=== PATIENT | male | born 1955 | race Caucasian/White ===

== ENCOUNTER 2019-02-10 05:48 | Day surgery (SDC) | payer BC ==
--- NOTE | 2019-02-04 11:05 | RAD REPORT ---
EXAM DESCRIPTION: RAD - Chest Pa And Lat (2 Views) - 02/04/2019 10:57 am CLINICAL HISTORY: preop Chest pain. COMPARISON: No comparisons FINDINGS: The lungs are emphysematous but clear. The heart is normal in size. No displaced fractures . IMPRESSION: Mild COPD.
[2019-02-04 11:39] LABS: Absolute Lymphocytes (CBC) 1.2 K/uL (0.7-4.9); Basophils % 0.8 % (0-1.3); Hematocrit 33.7 % (39.6-49.0); Lymphocytes % 16.8 % (15.3-44.8); MPV 7.7 fL (7.6-11.3); RBC Red Blood Cell Count 3.64 M/uL (4.33-5.43)
[2019-02-04 11:46] LABS: Protime INR 1.06
[2019-02-04 12:09] LABS: Potassium 4.8 mmol/L (3.5-5.1)
--- OUTSIDE RECORDS SUMMARY | 2019-02-10 05:56 | XMS REPORT | Continuity of Care Document ---
:1955 Author Organization [facility] Care Team Providers Name Role Phone [facility] Unavailable Unavailable Problems Problem Status Onset Classification Date Comments Source Date Reported HYPERCHOLESTEROLEMIA Active Condition 09/13/2014 Medical Group HTN Active Condition 09/13/2014 Medical Group Benign hypertension1 Active Problem 09/02/2018 Data migrated Medical from [place] on 10/29/14. Hypercholesterolemia2 Active Problem 09/02/2018 Data migrated Medical from [place] on 10/29/14. Medications Medication Details Route Status Patient Ordering Order Source Instructions Provider Date lisinopril 20 mg See Active oral tablet [facility] 018 [facility] ns, # 30 Group tab, Refill(s) 6, TAKE 1 TABLET BY MOUTH EVERY DAY, Pharmacy: [facility] #[id number] lisinopril 20 mg 1 tablet, No Longer oral tablet PO, Daily, Active 018 Medical 0 Group Refill(s) amLODIPine 10 mg See Active oral tablet [facility] 018 Medical ns, TAKE 1 Group TABLET BY MOUTH EVERY DAY, # 90 tab, 3 Refill(s), Pharmacy: [facility] #[id number] simvastatin 40 See Active mg oral tablet [facility] 018 Medical ns, TAKE 1 Group TABLET BY MOUTH AT BEDTIME, # 90 tab, 3 Refill(s), Pharmacy: [id number] lisinopril 10 mg See No Longer oral tablet [facility] Active 018 Medical ns, TAKE 2 Group TABLET BY MOUTH EVERY DAY, # 180 tab, 3 Refill(s), Pharmacy: [id number] lisinopril 10 mg See Active oral tablet [facility] 018 Medical ns, TAKE 2 Group TABLET BY MOUTH EVERY DAY, # 180 tab, 3 Refill(s), Pharmacy: [facility] #[id number] simvastatin 40 See Active mg oral tablet [facility] 018 Medical ns, # 90 Group tab, Refill(s) 3, TAKE 1 TABLET BY MOUTH AT BEDTIME, Pharmacy: [facility] #[id number] triamcinolone 40 mg, Inactive ACETONIDE 40 Route: IM, 018 Medical mg/mL injectable ONCE, Group suspension Dosing Weight 105.057, kg, (KENALOG), Start date: 08/19/17 14:59:00 CDT, Stop date: 08/19/17 14:59:00 CDT benzonatate 100 100 mg=1 No Longer MH mg oral capsule cap, PO, Active 018 Medical TID, do Group not crush or chew, X 10 day, # 30 cap, 0 Refill(s), Pharmacy: [facility] #[id number] Levofloxacin 500 500 mg=1 No Longer MH MG Oral Tablet tab, PO, Active 018 Medical [Levaquin] Q24H, X 7 Group day, # 7 tab, 0 Refill(s), Pharmacy: [facility] #[id number] sucralfate 1 g 1 gm=1 Active oral tablet tab, PO, 017 Medical Before Group Meals & Bedtime, # 120 tab, 1 Refill(s), Pharmacy: [facility] #[id number] omeprazole 20 mg 20 mg=1 Active MH oral enteric tab, PO, 017 Medical coated tablet QAM, # 30 Group tab, 2 Refill(s), Pharmacy: [facility] #[id number] Ascorbic Acid 1 tab, PO, Active MH 113 MG / Beta Daily, 0 017 Medical Carotene 7160 MG Refill(s) Group / cuprous oxide 0.4 MG / dl-alpha tocopheryl acetate 100 UNT / Zinc Oxide 17.4 MG Oral Tablet [PreserVision] AMLODIPINE 1 po qam Active BESYLATE 5 MG 015 Medical TABS Group LISINOPRIL-HYDRO 1 po qd Active MH CHLOROTHIAZIDE 013 Medical 10-12.5 MG TABS Group LISINOPRIL-HYDRO 1 po qd Active MH CHLOROTHIAZIDE 013 Medical 10-12.5 MG TABS Group SIMVASTATIN 20 1 po qd Active MH MG TABS 012 Medical Group SIMVASTATIN 20 1 po qd Active MG TABS 012 Medical Group Allergies, Adverse Reactions, Alerts Substance Category Reaction Severity Reaction Status Date Comments Source type Reported PCN Drug PCN allergy 3 Medical Group penicillins Assertion Drug Active Data <sup>1</sup allergy 3 migrated Medical > from [facility] on 12/29/14. Originally documented as PCN. Immunizations No Data Provided for This Section Results Order Name Results Value Reference Date Interpretation Comments Source Range Chemistry SODIUM 138 135 - 143 2014 Medical Group Chemistry POTASSIUM 4.4 3.3 - 5.0 2014 Medical Group Chemistry ALBUMIN 4.4 3.5 - 5.0 2014 Medical Group Chemistry CALCIUM 9.4 8.6 - 9.8 2014 Medical Group Chemistry CREATININE 0.82 0.46 - 1.20 2014 Medical Group Chemistry BUN 17 10 - 22 2014 Medical Group Chemistry ALK PHOS 86 32 - 96 2014 Medical Group Chemistry SGOT (AST) 22 10 - 42 2014 [facility] Group Chemistry SGPT (ALT) 17 11 - 43 2014 Medical Group Chemistry CHOLESTEROL 228 120 - 200 2014 Medical Group Chemistry HDL 51 26 - 62 2014 Medical Group Chemistry LDL 132 0 - 130 2014 Medical Group Hematology HGB 14.3 12.3 - 17.3 2014 Medical Group Hematology HCT 42.9 36.7 - 50.5 2014 Medical Group Chemistry SODIUM 140 135 - 143 2013 Medical Group Chemistry POTASSIUM 4.4 3.3 - 5.0 2013 Medical Group Chemistry SODIUM 140 135 - 143 2013 Medical Group Chemistry POTASSIUM 4.4 3.3 - 5.0 2013 Medical Group Chemistry ALBUMIN 4.3 3.5 - 5.0 2013 Medical Group Chemistry CALCIUM 9.4 8.6 - 9.8 2013 Medical Group Chemistry CREATININE 0.73 0.46 - 1.20 2013 Medical Group Chemistry BUN 15 10 - 22 2013 Medical Group Chemistry ALK PHOS 80 32 - 96 2013 Medical Group Chemistry SGOT (AST) 27 10 - 42 2013 Medical Group Chemistry SGPT (ALT) 29 11 - 43 2013 Medical Group Chemistry CHOLESTEROL 259 120 - 200 2013 Medical Group Chemistry HDL 49 26 - 62 2013 Medical Group Chemistry LDL 145 0 - 130 2013 Medical Group Chemistry PSA 1.16 0 - 4.0 2013 Medical Group Chemistry TSH 1.48 0.34 - 5.60 2013 Medical Group Chemistry PSA 1.31 2012 Medical Group Chemistry PSA 1.31 2012 Medical Group Chemistry PSA 3.02 2010 Medical Group Chemistry PSA 3.02 2010 Medical Group Chemistry PSA 1.2 2004 Medical Group Chemistry PSA 1.2 2004 Medical Group Pathology Reports No Data Provided for This Section Diagnostic Reports No Data Provided for This Section Consultation Notes No Data Provided for This Section Discharge Summaries No Data Provided for This Section History and Physicals No Data Provided for This Section Vital Signs Vital Sign Value Date Comments Source Weight 110.966 01/15/2018 Medical Group BMI Calculated 30.58 01/15/2018 Medical Group Height 190.5 cm 01/15/2018 Medical Group Heart Rate 80 01/15/2018 Medical Group Systolic (mm Hg) 151 01/15/2018 Medical Group Diastolic (mm Hg) 96 01/15/2018 Medical Group Weight 106.989 10/09/2017 Medical Group BMI Calculated 29.48 10/09/2017 Medical Group Heart Rate 68 10/09/2017 Medical Group Height 190.5 cm 10/09/2017 Medical Group Systolic (mm Hg) 153 10/09/2017 Medical Group Diastolic (mm Hg) 91 10/09/2017 Medical Group Weight 105.057 08/19/2017 Medical Group Heart Rate 67 08/19/2017 Medical Group Respitory Rate 16 08/19/2017 Medical Group Systolic (mm Hg) 140 08/19/2017 Medical Group Diastolic (mm Hg) 90 08/19/2017 Medical Group Weight 103.636 05/21/2017 Medical Group Heart Rate 64 05/21/2017 [facility] Respitory Rate 16 05/21/2017 [facility] Systolic (mm Hg) 134 05/21/2017 [facility] Diastolic (mm Hg) 74 05/21/2017 Medical Group BMI Calculated 29.07 05/07/2017 [facility] Weight 105.511 05/07/2017 [facility] Systolic (mm Hg) 112 05/07/2017 [facility] Diastolic (mm Hg) 74 05/07/2017 [facility] Height 190.5 cm 05/07/2017 [facility] Respitory Rate 14 05/07/2017 Medical Group Heart Rate 76 05/07/2017 Medical Group Weight 106.818 04/16/2017 Medical Group BMI Calculated 29.43 04/16/2017 Medical Group Height 190.5 cm 04/16/2017 [facility] Systolic (mm Hg) 138 04/16/2017 [facility] Diastolic (mm Hg) 86 04/16/2017 Medical Group Heart Rate 59 04/16/2017 Medical Group Weight 216 09/13/2014 [facility] Temperature Oral (F) 97 F 09/13/2014 Medical Group Heart Rate 64 09/13/2014 [facility] Systolic (mm Hg) 160 09/13/2014 [facility] Diastolic (mm Hg) 94 09/13/2014 Medical Group Weight 228 03/15/2014 Medical Group Temperature Oral (F) 97 F 03/15/2014 Medical Group Heart Rate 57 03/15/2014 [facility] Systolic (mm Hg) 166 03/15/2014 Medical Group Diastolic (mm Hg) 89 03/15/2014 Medical Group Weight 231 07/23/2013 Medical Group Temperature Oral (F) 98 F 07/23/2013 Medical Group Heart Rate 72 07/23/2013 Medical Group Systolic (mm Hg) 143 07/23/2013 Medical Group Diastolic (mm Hg) 87 07/23/2013 Medical Group Weight 233 01/21/2013 Medical Group Heart Rate 88 01/21/2013 [facility] Systolic (mm Hg) 130 01/21/2013 Medical Group Diastolic (mm Hg) 84 01/21/2013 Medical Group Weight 220 07/23/2012 Medical Group Heart Rate 88 07/23/2012 Medical Group Systolic (mm Hg) 120 07/23/2012 Medical Group Diastolic (mm Hg) 80 07/23/2012 Medical Group Height 74 01/09/2012 Medical Group Weight 230 01/09/2012 Medical Group Heart Rate 80 01/09/2012 Medical Group Systolic (mm Hg) 150 01/09/2012 Medical Group Diastolic (mm Hg) 78 01/09/2012 Medical Group Encounters Location Location Encounter Encounter Reason Attending ADM DC Status Source Details Type Number For Provider Date Date Visit [facility] Lab Report [id number] Sharif 03/14 03/14 [facility] [place] [address], /2013 [facility] [place] [facility] Office [id number] 03/15 [facility] Visit [address], /2013 Medical [facility] [place] [facility] Lab Report [id number] Sharif 09/06 09/06 [facility] [place] [address], /2014 Medical [facility] [place] [facility] Office [id number] Sharif 09/13 09/13 [facility] Visit [address], /2014 Medical [facility] [place] [facility] Outpatient [id number] 02/21 [facility] [place] [facility] Outpatient [id number] 08/17 [facility] [place] [facility]2015 [facility] [id number] 02/22 [facility] [place] [facility] [id number] 08/26 [facility] [place] [facility]patient [id number] 09/05 [facility] [place] [facility]patient [id number] 04/16 [id number] Sharif 04/16 04/17 Internal [place] /2016 [facility] [place] Outpatient [id number] 05/07 [facility] [id number] 05/07 05/08 [facility] [place] Outpatient [id number] 05/21 [facility] [id number] 05/21 05/22 [facility] [place] Outpatient [id number] 08/19 [facility] [id number] 08/19 08/20 [facility] [place] [facility] Phone [id number] 08/21 08/23 Family Message /2017 [facility] [place] [facility] Phone [id number] 09/15 09/17 Internal Message /2017 [facility] [place] Outpatient [id number] 10/09 Active [facility] [place] [facility] Outpatient [id number] 10/09 Internal [place] /2017 [facility] [place] Outpatient [id number] 01/15 Active [facility] [place] [facility] Outpatient [id number] Sharif 01/15 01/16 Internal [place] /2017 [facility] [place] [facility] Phone [id number] 02/12 02/14 Internal Message /2017 [facility] Procedures Procedure Code Date Perfomer Comments Source Operation [id number] Medical Group Assessment and Plan No Data Provided for This Section Plan of Care No Data Provided for This Section Social History Social History Date Source Social History TypeResponse 01/15/2018 Medical Group Substance Abuse Use: None. Smoking Status Never smoker; Type: Cigars; Exposure to Tobacco Smoke None; Cigarette Smoking Last 365 Days No; Reg Smoking Cessation Counseling No1 entered on: 01/15/18 1pt is a non-smoker Family History No Data Provided for This Section Advance Directives No Data Provided for This Section Functional Status No Data Provided for This Section
--- OUTSIDE RECORDS SUMMARY | 2019-02-10 05:57 | XMS REPORT | Continuity of Care Document ---
:[address] [facility] [place] [place] Care Team Providers Name Role Phone MD Gregoria, Sharif Unavailable Unavailable Insurance Providers Payer name Policy type / Coverage Policy ID Covered green party ID Policy [place] type AETNA PPO PRIMARY [id number] AETNA PPO PRIMARY [id number] AETNA (PPO) AETNA (PPO) AETNA (PPO) Encounters Encounter Performer Location Date Office Visit Sharif iKnney MD [facility] Internal Mar 15, 2014 Med Allergies, Adverse Reactions, Alerts Type Substance Reaction Status Drug allergy PCN Active Problems Problem Effective Dates Problem Status HYPERCHOLESTEROLEMIA Active HTN Active Procedures Date Description Comments Jan 09, 2012 smoking status never smoker Mar 15, 2014 smoking status Never smoker Medications Medication Instructions Start Date Status SIMVASTATIN 20 MG TABS 1 po qd Jan 09, 2012 Active LISINOPRIL-HYDROCHLOROTHIAZIDE 10-12.5 MG TABS 1 po qd Jul 23, 2012 Active Vital Signs Date Description Test Result Jan 09, 2012 height E&M - 8302-2 HEIGHT 74 in Jan 09, 2012 weight E&M - 3141-9 WEIGHT 230 lb Jan 09, 2012 pulse rate E&M - 8867-4 PULSE RATE 80 /min Jan 09, 2012 blood pressure, systolic - 8480-6 BP SYSTOLIC 150 mm Hg Jan 09, 2012 blood pressure, diastolic - 8462-4 BP DIASTOLIC 78 mm Hg Jul 23, 2012 weight E&M - 3141-9 WEIGHT 220 lb Jul 23, 2012 pulse rate E&M - 8867-4 PULSE RATE 88 /min Jul 23, 2012 blood pressure, systolic - 8480-6 BP SYSTOLIC 120 mm Hg Jul 23, 2012 blood pressure, diastolic - 8462-4 BP DIASTOLIC 80 mm Hg Jan 21, 2013 weight E&M - 3141-9 WEIGHT 233 lb Jan 21, 2013 pulse rate E&M - 8867-4 PULSE RATE 88 /min Jan 21, 2013 blood pressure, systolic - 8480-6 BP SYSTOLIC 130 mm Hg Jan 21, 2013 blood pressure, diastolic - 8462-4 BP DIASTOLIC 84 mm Hg Jul 23, 2013 weight E&M - 3141-9 WEIGHT 231 lb Jul 23, 2013 temperature E&M TEMPERATURE 98 deg f Jul 23, 2013 pulse rate E&M - 8867-4 PULSE RATE 72 /min Jul 23, 2013 blood pressure, systolic - 8480-6 BP SYSTOLIC 143 mm Hg Jul 23, 2013 blood pressure, diastolic - 8462-4 BP DIASTOLIC 87 mm Hg Mar 15, 2014 weight E&M - 3141-9 WEIGHT 228 lb Mar 15, 2014 temperature E&M TEMPERATURE 97 deg f Mar 15, 2014 pulse rate E&M - 8867-4 PULSE RATE 57 /min Mar 15, 2014 blood pressure, systolic - 8480-6 BP SYSTOLIC 166 mm Hg Mar 15, 2014 blood pressure, diastolic - 8462-4 BP DIASTOLIC 89 mm Hg Results Date Description Test Name Value Reference Interpretation Status October 11, prostate specific PSA 3.02 ng/mL 2010 antigen Jan 14, prostate specific PSA 1.31 ng/mL 2012 antigen October 02, prostate specific PSA 1.2 ng/mL 2004 antigen Mar 14, sodium, serum SODIUM 140 mmol/L [phone] Mar 14, potassium, serum POTASSIUM 4.4 mmol/L 3.3-5.0 2013Mar 14, albumin, serum ALBUMIN 4.3 g/dL 3.5-5.0 2013Mar 14, calcium, serum CALCIUM 9.4 mg/dL 8.6-9.8 2013Mar 14, creatinine, serum CREATININE 0.73 mg/dL 0.46-1.20 2013Mar 14, urea nitrogen, blood BUN 15 mg/dL -22 2013Mar 14, alkaline phosphatase, ALK PHOS 80 U/L 32-96 2013 serum Mar 14, aspartate SGOT (AST) 27 U/L 10-42 2013 aminotransferase (SGOT), serum Mar 14, alanine SGPT (ALT) 29 U/L -43 2013 aminotransferase (SGPT), serum Mar 14, cholesterol, serum CHOLESTEROL 259 mg/dl 120-200 High 2013Mar 14, HDL cholesterol, HDL 49 mg/dl -62 2013 serum Mar 14, LDL cholesterol, LDL 145 mg/dl 0-130 High 2013 serum Mar 14, prostate specific PSA 1.16 ng/mL 0-4.0 2013 antigen Mar 14, thyroid stimulating TSH 1.48 0.34-5.60 2013 hormone, serum uIU/mL Jul 23, international INR null null Normal 2012 normalized ratio (INR)
--- OUTSIDE RECORDS SUMMARY | 2019-02-10 05:57 | XMS REPORT ---
:1955 Author [facility] Address [address] [place] [address] Dr. Richardson [address] [place] [id number] Care Team Providers Name Role Phone Unavailable Unavailable Unavailable Problems This patient has no known problems. Allergies, Adverse Reactions, Alerts This patient has no known allergies or adverse reactions. Medications This patient has no known medications.
--- OUTSIDE RECORDS SUMMARY | 2019-02-10 05:57 | XMS REPORT | Continuity of Care Document ---
:1955 Author Organization [facility] Care Team Providers Name Role Phone MD Gregoria, Sharif Unavailable Unavailable Insurance Providers Payer name Policy type / Coverage Policy ID Covered libertarian ID Policy [place] type AETNA PPO PRIMARY [id number] AETNA PPO PRIMARY [id number] AETNA (PPO) AETNA (PPO) AETNA (PPO) Encounters Encounter Performer Location Date Lab Report Sharif Kinney MD [facility] Internal Aug Med Allergies, Adverse Reactions, Alerts Type Substance [...] Description Test Name Value Reference Interpretation Status Sep 06, hemoglobin, blood HGB 14.3 g/dL 12.3-17.3 2014Sep 06, hematocrit, blood HCT 42.9 % 36.7-50.5 2014October 11, prostate specific PSA 3.02 ng/mL 2010 antigen Jan 14, prostate specific PSA 1.31 ng/mL 2012 antigen October 02, prostate specific PSA 1.2 ng/mL 2004 antigen Mar 14, sodium, serum SODIUM 140 mmol/L [phone] Mar 14, potassium, serum POTASSIUM 4.4 mmol/L 3.3-5.0 2013Mar 14, albumin, serum ALBUMIN 4.3 g/dL 3.5-5.0 2013Mar 14, calcium, serum CALCIUM 9.4 mg/dL 8.6-9.8 2013Mar 14, creatinine, serum CREATININE 0.73 mg/dL 0.46-1.20 2013Mar 14, urea nitrogen, blood BUN 15 mg/dL -2013Mar 14, alkaline phosphatase, ALK PHOS 80 U/L 32-96 2013 serum Mar 14, aspartate SGOT (AST) 27 U/L -42 2013 aminotransferase (SGOT), serum Mar 14, alanine SGPT (ALT) 29 U/L -43 2013 aminotransferase (SGPT), serum Mar 14, cholesterol, serum CHOLESTEROL 259 mg/dl 120-200 High 2013Mar 14, HDL cholesterol, HDL 49 mg/dl 26-62 2013Mar 14, LDL cholesterol, LDL 145 mg/dl 0-130 High 2013 serum Mar 14, prostate specific PSA 1.16 ng/mL 0-4.0 2013 antigen Mar 14, thyroid stimulating TSH 1.48 0.34-5.60 2013 hormone, serum uIU/mL Sep 06, sodium, serum SODIUM 138 mmol/L [phone] Sep 06, potassium, serum POTASSIUM 4.4 mmol/L 3.3-5.0 2014Sep 06, albumin, serum ALBUMIN 4.4 g/dL 3.5-5.0 2014Sep 06, calcium, serum CALCIUM 9.4 mg/dL 8.6-9.8 2014Sep 06, creatinine, serum CREATININE 0.82 mg/dL 0.46-1.20 2014Sep 06, urea nitrogen, blood BUN 17 mg/dL 10-22 2014Sep 06, alkaline phosphatase, ALK PHOS 86 U/L 32-96 2014 serum Sep 06, aspartate SGOT (AST) 22 U/L 10-42 2014 aminotransferase (SGOT), serum Sep 06, alanine SGPT (ALT) 17 U/L 11-43 2014 aminotransferase (SGPT), serum Sep 06, cholesterol, serum CHOLESTEROL 228 mg/dl 120-200 High 2014Sep 06, HDL cholesterol, HDL 51 mg/dl 26-62 2014 serum Sep 06, LDL cholesterol, LDL 132 mg/dl 0-130 High 2015 serum Jul 23, international INR null null Normal 2013 normalized ratio (INR)
--- OUTSIDE RECORDS SUMMARY | 2019-02-10 05:57 | XMS REPORT | Summary of Care ---
:1955 Author Organization [facility] [employer] Address [address] [place] [address] Care Team Providers Name Role Phone [address] Primary Care Provider Unavailable Reason for Visit Reason Comments Assessment Encounter Details Date Type Department Care Team Description 01/01/2019 Telephone [facility] Cardiology- Clint Soto MD Assessment [place] [address] [facility] [address] [facility], [address] [place] [address] [place] [address] Allergies No Known Allergiesdocumented as of this encounter (statuses as of 01/01/2019) Medications Medication Sig Dispensed Refills Start Date End Date Status folic Take by mouth 0 Active acid/multivit-min/lutein daily. (CENTRUM SILVER ORAL) acetaminophen/diphenhydr Take by mouth 0 Active amine (TYLENOL PM ORAL) as needed. Bifidobacterium infantis Take by mouth 0 Active (ALIGN ORAL) daily. vit A/vit C/vit Take by mouth 0 Active E/zinc/copper daily. (PRESERVISION AREDS ORAL) simvastatin 40 mg tablet Take 40 mg by 0 Active mouth at bedtime. sucralfate 1 gram tablet Take 3 g by 0 Active mouth before meals and at bedtime. BENZONATATE ORAL Take by mouth 0 Active 3 (three) times daily. triamterene-hydrochlorot Take 1 capsule 30 capsule 2 11/02/2018 Active hiazide (DYAZIDE) by mouth every 37.5-25 mg per capsule morning. amLODIPine 10 mg tablet Take 1 tablet 0 11/03/2018 Active by mouth every morning. lisinopril 40 mg Take 1 tablet 30 tablet 2 12/31/2018 Active tabletIndications: by mouth every Essential hypertension morning. documented as of this encounter (statuses as of 01/01/2019) Active Problems Not on filedocumented as of this encounter (statuses as of 01/01/2019) Social History Tobacco Use Types Packs/Day Years Used Date Former Smoker Smokeless Tobacco: Former User Alcohol Use Drinks/Week oz/Week Comments Yes social Sex Assigned at Date Recorded Not on file Job Start Date Occupation Industry Not on file Not on file Not on file Travel History Travel Start Travel End No recent travel history available. documented as of this encounter Last Filed Vital Signs Not on filedocumented in this encounter Plan of Treatment Date Type Specialty Care Team Description 01/13/2019 Office Visit Pulmonary Disease Sebastian Ferrera [address] [place] [address] [phone] 01/15/2019 Office Visit Cardiology Clint Soto MD [address] [place] [address] [address] [place] [address] [phone] Health Maintenance Due Date Last Done Comments HEPATITIS C (HCV) SCREEN 1955 DTaP,Tdap,and Td Vaccines (1 - 01/17/1975 Tdap) COLONOSCOPY 01/17/2006 Zoster Recombinant Vaccine 01/17/2006 (SHINGRIX) (1 of 2) LUNG CANCER SCREEN: Recommended 01/17/2011 for age 55-80 with 30 + pack year history INFLUENZA VACCINE 01/31/2019 PNEUMOCOCCAL 0-64 YEARS COMBINED Aged Out No longer eligible based on SERIES patient's age to complete this topic documented as of this encounter Results Not on filedocumented in this encounter Insurance Payer Benefit Plan Subscriber ID Effective Dates Phone Address Type / Group [facility] [id number] 2018-Bianca [phone] [address]PO/POS [place] [id number] [place] [address] documented as of this encounter
--- OUTSIDE RECORDS SUMMARY | 2019-02-10 05:57 | XMS REPORT | Continuity of Care Document ---
:1955 Author Organization [facility] Care Team Providers Name Role Phone MD Gregoria, Sharif Unavailable Unavailable Insurance Providers Payer name Policy type / Coverage Policy ID Covered green party ID Policy [place]es type AETNA PPO PRIMARY [id number] AETNA PPO PRIMARY [id number] AETNA (PPO) AETNA (PPO) AETNA (PPO) Encounters Encounter Performer Location Date Lab Report Sharif Kinney MD [facility] Internal Mar Med Allergies, Adverse Reactions, Alerts Type Substance Reaction Status Drug allergy PCN Active Problems Problem Effective Dates Problem Status HYPERCHOLESTEROLEMIA Active HTN Active Procedures Date Description Comments Jan 09, 2012 smoking status never smoker Medications Medication Instructions Start Date Status [...] - 8462-4 BP DIASTOLIC 87 mm Hg Results Date Description Test Name Value Reference Interpretation Status October 11, prostate specific PSA 3.02 ng/mL 2010 antigen Jan 14, prostate specific PSA 1.31 ng/mL 2012 antigen October 02, prostate specific PSA 1.2 ng/mL 2004 antigen Mar 14, sodium, serum SODIUM 140 mmol/L [phone] Mar 14, potassium, serum POTASSIUM 4.4 mmol/L [...]
--- OUTSIDE RECORDS SUMMARY | 2019-02-10 05:57 | XMS REPORT | Continuity of Care Document ---
:1955 Author Organization [facility] Care Team Providers Name Role Phone MD Gregoria, Sharif Unavailable Unavailable Insurance Providers Payer name Policy type / Coverage Policy ID Covered democrat ID Policy [place] type AETNA PPO PRIMARY [id number] AETNA PPO PRIMARY [id number] AETNA (PPO) AETNA (PPO) AETNA (PPO) Encounters Encounter Performer Location Date Office Visit Sharif Kinney MD [facility] Internal Sep 13, 2014 Med Allergies, Adverse Reactions, Alerts Type Substance Reaction Status Drug allergy PCN Active Problems Problem Effective Dates Problem Status HYPERCHOLESTEROLEMIA Active HTN Active Procedures Date Description Comments Jan 09, 2012 smoking status never smoker Mar 15, 2014 smoking status Never smoker Sep 13, 2014 smoking status Never smoker Medications Medication Instructions Start Date Status SIMVASTATIN 20 MG TABS 1 po qd Jan 09, 2012 Active LISINOPRIL-HYDROCHLOROTHIAZIDE 10-12.5 MG TABS 1 po qd Jul 23, 2012 Active AMLODIPINE BESYLATE 5 MG TABS 1 po qam Sep 13, 2014 Active Vital Signs Date Description Test Result [...] - 8462-4 BP DIASTOLIC 89 mm Hg Sep 13, 2014 weight E&M - 3141-9 WEIGHT 216 lb Sep 13, 2014 temperature E&M TEMPERATURE 97 deg f Sep 13, 2014 pulse rate E&M - 8867-4 PULSE RATE 64 /min Sep 13, 2014 blood pressure, systolic - 8480-6 BP SYSTOLIC 160 mm Hg Sep 13, 2014 blood pressure, diastolic - 8462-4 BP DIASTOLIC 94 mm Hg Results Date Description Test Name Value Reference Interpretation Status Sep 06, hemoglobin, blood HGB 14.3 g/dL 12.3-17.3 2014Sep 06, hematocrit, blood HCT 42.9 % 36.7-50.5 2014October 11, prostate specific PSA 3.02 ng/mL 2010 antigen Jan 14, prostate specific PSA 1.31 ng/mL 2012 antigen October 02, prostate specific PSA 1.2 ng/mL 2004 antigen Mar 14, sodium, serum SODIUM 140 mmol/L [phone] Mar 14, potassium, serum POTASSIUM 4.4 mmol/L 3.3-5.0 2013Mar 14, albumin, serum ALBUMIN 4.3 g/dL 3.5-5.0 2013Mar 14, calcium, serum CALCIUM 9.4 mg/dL 8.6-9.8 2013Mar 14, creatinine, serum CREATININE 0.73 mg/dL 0.46-1.20 2013Mar 14, urea nitrogen, blood BUN 15 mg/dL -2013Mar 14, alkaline phosphatase, ALK PHOS 80 U/L 2013 serum Mar 14, aspartate SGOT (AST) 27 U/L 2013 aminotransferase (SGOT), serum Mar 14, alanine SGPT (ALT) 29 U/L 2013 aminotransferase (SGPT), serum Mar 14, cholesterol, serum CHOLESTEROL 259 mg/dl 120-200 High 2013Mar 14, HDL cholesterol, HDL 49 mg/dl -2013 serum Mar 14, LDL cholesterol, LDL 145 mg/dl 0-130 High 2013 serum Mar 14, prostate specific PSA 1.16 ng/mL 0-4.0 2013 antigen Mar 14, thyroid stimulating TSH 1.48 0.34-5.60 2013 hormone, serum uIU/mL Sep 06, sodium, serum SODIUM 138 mmol/L [phone] Sep 06, potassium, serum POTASSIUM 4.4 mmol/L 3.3-5.0 2014Sep 06, albumin, serum ALBUMIN 4.4 g/dL 3.5-5.0 2014Sep 06, calcium, serum CALCIUM 9.4 mg/dL 8.6-9.8 2014Sep 06, creatinine, serum CREATININE 0.82 mg/dL 0.46-1.20 2014Sep 06, urea nitrogen, blood BUN 17 mg/dL 03-23Sep 06, alkaline phosphatase, ALK PHOS 86 U/L 2014 serum Sep 06, aspartate SGOT (AST) 22 U/L 2014 aminotransferase (SGOT), serum Sep 06, alanine SGPT (ALT) 17 U/L 2014 aminotransferase (SGPT), serum Sep 06, cholesterol, serum CHOLESTEROL 228 mg/dl 120-200 High 2014Sep 06, HDL cholesterol, HDL 51 mg/dl 2014 serum Sep 06, LDL cholesterol, LDL 132 mg/dl 0-130 High 2015 serum Jul 23, international INR null null Normal 2012 normalized ratio (INR)
--- OUTSIDE RECORDS SUMMARY | 2019-02-10 05:58 | XMS REPORT | Summary of Care ---
:1955 Author Organization [facility] Address [address] [place] [id number] Care Team Providers Name Role Phone Robert St Primary Care Provider Unavailable Reason for Referral (Routine) Status Reason Specialty Diagnoses / Referred By Referred To Procedures Contact Contact New Request Sleep Disorder Diagnoses Obstructive sleep apnea of adult [facility], Diagnostic Procedures SLEEP STUDY, ATTENDED [address] [place] [address] Reason for Visit Reason Comments New Patient Results HST (Routine) Status Reason Specialty Diagnoses / Referred By Referred To Procedures Contact Contact Closed Sleep Disorder Diagnoses FEI (obstructive sleep apnea) Clint Soto MD Diagnostic Procedures CONSULT/REFERRAL SLEEP CLINIC ADULT PULM Preferred Location: [address] [place] [address] Encounter Details Date Type Department Care Team Description 01/13/2019 Office Visit [facility] Sebastian Ferrera Obstructive sleep Pulmonary Clinic [address] [place] [address] ap[address] Alvar[address] Lala [address] (Primary Dx) [address] [place] [address] [place], [place] [phone] Allergies No Known Allergiesdocumented as of this encounter (statuses as of 01/13/2019) Medications Medication Sig Dispensed Refills Start Date [...] as of this encounter (statuses as of 01/13/2019) Active Problems Not on filedocumented as of this encounter (statuses as of 01/13/2019) Social History Tobacco Use Types Packs/Day Years [...] of this encounter Last Filed Vital Signs Vital Sign Reading Time Taken Comments Blood Pressure 117/76 01/13/2019 11:26 AM CDT Pulse 90 01/13/2019 11:26 AM CDT Temperature - - Respiratory Rate 19 01/13/2019 11:26 AM CDT Oxygen Saturation 97% 01/13/2019 11:26 AM CDT Inhaled Oxygen Concentration - - Weight 107 kg (235 lb 12.8 oz) 01/13/2019 11:26 AM CDT Height 193 cm (6' 4") 01/13/2019 11:26 AM CDT Body Mass Index 28.7 01/13/2019 11:26 AM CDT documented in this encounter Progress Notes Sebastian Ferrera - 01/13/2019 11:30 AM CDTReason for Clinic Visit: The patient comes to clinic today for a review of sleep study results. Chief Complaints: The patient reports: excessive daytime sleepiness, fatigue, snoring, witnessed apneas. History of Present Illness: The usual bed time is 9 p.m. and wake up time is 5: 30-6 a.m. The patientdoes take intentional naps during the day. The patient does not suffer from irresistible sleep attacks during the day. The patient does not experience sudden loss of muscle tone when emotional or excited. The patient does not report vivid dream-like images and loss of muscle tone when falling asleep and upon awakening. Witherbee Sleepiness Scale score: 10 (0-24). Social History: The patient does not smoke cigarettes. The patient occasionally drinks alcoholic beverages. Caffeinated beverages consumption: 1-2 per day. Family History: The family history is positive for snoring in blood relatives. Physical Examination: 1) Vital signs: as noted above. 2) General: the patient is pleasant, well developed, and in NAD. 3) Skin: there are no rashes, edema, or abnormal pigmentation. 4) Head: there areno skull deformities or pathological facial asymmetry. 5) Eyes: pupils are equal, round, and reactive to light; extraocular movements are conjugate and unrestricted, without strabismus or nystagmus. 6)ENT: oropharynx reveals low set soft palate and elongated uvula; the patient displays a good sniff through both the right and left nostril. 7) Neck: there are no distended veins or enlarged lymph nodes. 8) Back: straight, spine - without pathological curvatures. 9) Bilateral lower extremities are without edema. 10) Neurological - patient is alert, oriented and answers questions appropriately. Review of Systems: 1)Respiratory: positive for snoring and witnessed apneas; 2)Cardiovascular: positive for hypertension; 3)Endocrine/Metabolic: positive for dyslipidemia; 4) Digestive: negative for abnormalities; 5)Urinary: positive for nocturia; 6) Skeletal: no skeletal abnormalities detected; 7)Muscular: negative for muscular abnormalities; 8)Nervous: positive for hypersomnia; 9)Integumentary: no visible or reported skin or hair abnormalities; 10)Reproductive: no reproductive abnormalities noted; 11)Immune/Lymphatic/Allergy: positive for respiratory allergies. Sleep Study Results: The HST on 11/25/18 revealed respiratory disturbance index of 37.8 events per hour of total sleep (normal <5/hr) with a minimum oxygen saturation by pulse oximetry of 84%. Diagnosis: Obstructive Sleep Apnea-G47.33 Recommendations and Patient Education: The medical condition (Obstructive Sleep Apnea Syndrome) was discussed with the patient and the possible consequences of untreated sleep apnea regarding quality of sleep, daytime alertness, and cardiovascular complications were underlined. The patient was prompted to ask questions clarifying the subject of sleep apnea and related issues and all questions were answered in detail. Different treatment options were discussed with the patient including Positive Airway Pressure (PAP), ENT surgery, Mandibular Advancement Device, and weight reduction. The effectiveness, success rates, and side effects of these different treatment options were compared and analyzed. The patient prefers PAP treatment trial at this time and I have therefore scheduled for a PAP titration study. Additional time was spent discussing sleep hygiene including: regular bedtime and wake-up times; enough sleep hours; going to bed only when sleepy; using bed for the sole purpose of sleeping; avoidanceof: 1) caffeinated and alcoholic beverages, 2) strenuous cognitive activity, or 3) heavy meals in the evening. The patient was instructed to contact us in case of any further questions or concerns. I will follow up with the patient to review the results of the sleep study. documented in this encounter Plan of Treatment Date Type Specialty Care Team Description 01/15/2019 Office Visit Cardiology Clint Soto MD [address] [place] [address] [phone] Name Type Priority Associated Diagnoses Order Schedule SLEEP STUDY, ATTENDED PROCEDURES Routine Obstructive sleep apnea Ordered: 01/13/2019 of adult Health Maintenance Due Date Last Done Comments [...] Results Not on filedocumented in this encounter Visit Diagnoses Diagnosis Obstructive sleep apnea of adult - Primary Obstructive sleep apnea (adult) (pediatric) documented in this encounter Insurance Payer Benefit Plan Subscriber ID Effective Dates Phone Address Type / Group [facility] [id number] 2018-Bianca [phone] [address] PPO/POS [facility] [id number] [place] [address] documented as of this encounter
--- OUTSIDE RECORDS SUMMARY | 2019-02-10 05:58 | XMS REPORT | Summary of Care ---
:1955 Author Organization [facility] [place] Address [address] [place] [address] Care Team Providers Name Role Phone Robert St Primary Care Provider Unavailable Reason for Visit Reason Comments Pre-op Clearance Encounter Details Date Type Department Care Team Description 01/13/2019 Telephone [facility] Cardiology- Clint Soto MD Pre-op Clearance [address] [place] [address] [place], [place] [phone] Allergies No Known Allergiesdocumented as of this [...] 01/15/2019 Office Visit Cardiology Clint Soto MD [address] [place] [address] [place] [address] [id number] 01/15/2019 Scanning Manager Visit Sleep Disorder [address] [place] [phone] Diagnostic 1, [facility] Sleep Lab Bed 01/20/2019 Office Visit Pulmonary Disease [address] John [address] [place] [address] [phone] Health Maintenance Due Date Last Done Comments [...] Effective Dates Phone Address Type / Group [facility] [id number] 2018-Bianca [phone] [address] PPO/POS [facility] [address] [id number] [place] [address] documented as of this encounter
--- OUTSIDE RECORDS SUMMARY | 2019-02-10 05:58 | XMS REPORT | Summary of Care ---
:1955 Author Organization [facility] [employer] Address [address] [place] [address] Care Team Providers Name Role Phone MacielBertinju Primary Care Provider Unavailable Reason for Referral Radiology Services (Routine) Status Reason Specialty Diagnoses / Referred By Referred To Procedures Contact Contact Closed Diagnostic Diagnoses Chest pain, unspecified type R07.9 (ICD-10-CM) - Chest pain, unspecified type Clint Soto, Radiology Procedures NM MYOCARDIUM PERFUSION STRESS AND REST CHG MYOCARDIAL SPECT MULTIPLE STUDIES [id number] - NM MYOCARDIUM PERFUSION STRESS AND REST [id number] - CHG MYOCARDIAL SPECT MULTIPLE STUDIES [address] [place] [address] [address] [place] [address] (Routine) Status Reason Specialty Diagnoses / Procedures Referred By Contact Referred To Contact Closed Cardiology Diagnoses Chest pain, unspecified type Clint Soto MD Procedures ECHO ROUTINE W/DOPPLER COLOR Preferred Location: [facility] [address] [place] [address] [address] [place] [address] Reason for Visit Reason Comments New Patient Establish Care/Needing GI work up Cardiac Clearance Encounter Details Date Type Department Care Team Description 10/02/2018 Office Visit [facility] Clint Soto MD Chest pain, unspecified type (Primary Dx); Cardiology- [address] Essential hypertension; [address] [place] [address], [address] [place] [id number] [phone] Allergies No Known Allergiesdocumented as of this encounter (statuses as of 01/13/2019) Medications Medication Sig Dispensed Refills Start Date End Date Status folic Take by 0 Active acid/multivit-min/lut mouth daily. ein (CENTRUM SILVER ORAL) acetaminophen/diphenh Take by 0 Active ydramine (TYLENOL PM mouth as ORAL) needed. Bifidobacterium Take by 0 Active infantis (ALIGN ORAL) mouth daily. vit A/vit C/vit Take by 0 Active E/zinc/copper mouth daily. (PRESERVISION AREDS ORAL) simvastatin 40 mg Take 40 mg 0 Active tablet by mouth at bedtime. sucralfate 1 gram Take 3 g by 0 Active tablet mouth before meals and at bedtime. BENZONATATE ORAL Take by 0 Active mouth 3 (three) times daily. lisinopril 20 mg Take 20 mg 0 10/02/2018 Discontinued tablet by mouth daily. amLODIPine 10 mg Take 10 mg 0 11/03/2018 Discontinued tablet by mouth daily. omeprazole 20 mg Take 20 mg 0 10/30/2018 Discontinued capsule by mouth daily. lisinopril 20 mg Take 1 60 tablet 1 10/02/2018 10/02/2018 Discontinued tabletIndications: tablet by Essential mouth 2 hypertension (two) times daily. documented as of this encounter (statuses as [...] Sign Reading Time Taken Comments Blood Pressure 158/91 10/02/2018 9:45 AM CDT Pulse 60 10/02/2018 9:45 AM CDT Temperature - - Respiratory Rate 20 10/02/2018 9:45 AM CDT Oxygen Saturation 99% 10/02/2018 9:45 AM CDT Inhaled Oxygen Concentration - - Weight 105.7 kg (233 lb 1.6 oz) 10/02/2018 9:45 AM CDT Height 193 cm (6' 4") 10/02/2018 9:45 AM CDT Body Mass Index 28.37 10/02/2018 9:45 AM CDT documented in this encounter Progress Notes Clint Soto MD - 10/02/2018 9:40 AM CDT CARDIOLOGY CLINIC NOTE 10/02/2018 Reason for Referral/Presenting Complaint: chest pain PCP: Robert St History of Present Illness: Martín Bermudez is a 63 years old male with history of HTN, HLD. He is here for chest pain. It is precordial exploding sensation, associated with SOB. It only occurs when he is exerting and burps at the same time. Feels that he cannot get the gas out. Sometimes he wakes up burping. Occasionalleft sided arm pain. Has a slimy taste with nausea. Barium test normal. Plan on GI endoscopy. BP hasbeen high. He snores. Review of Systems: General: (-) fever, (-) chills, (-) weight change, (-) dizziness, (-) fatigue Skin: (-) rash HEENT: (-) headache, (-) change in vision Neck: (-) difficulty swallowing Heme: negative Resp: (-) cough, (-) dyspnea on exertion Cardio: (+) chest pain, (-) palpitations, (-) syncope GI: (-) vomiting, (-) diarrhea : negative Endo: (-) diabetes, (-) thyroid disease Neuro: (-) numbness, (-) tingling, (-) weakness Back: (-) pain PETER: (-) muscle pain, (-) claudication Psych: (-) anxiety, (-) depression Past Medical History: History reviewed. No pertinent past medical history. Current Medications: Current Outpatient Prescriptions Medication Sig Dispense Refill acetaminophen/diphenhydramine (TYLENOL PM ORAL) Take by mouth as needed. amLODIPine 10 mg tablet Take 10 mg by mouth daily. BENZONATATE ORAL Take by mouth 3 (three) times daily. Bifidobacterium infantis (ALIGN ORAL) Take by mouth daily. folic acid/multivit-min/lutein (CENTRUM SILVER ORAL) Take by mouth daily. omeprazole 20 mg capsule Take 20 mg by mouth daily. simvastatin 40 mg tablet Take 40 mg by mouth at bedtime. sucralfate 1 gram tablet Take 3 g by mouth before meals and at bedtime. vit A/vit C/vit E/zinc/copper (PRESERVISION AREDS ORAL) Take by mouth daily. lisinopril 40 mg tablet Take 1 tablet by mouth daily. 30 tablet 2 No current facility-administered medications for this visit. Social History: Social History Social History Marital status: Spouse name: N/A Number of children: N/A Years of education: N/A Social History Main Topics Smoking status: Former Smoker Smokeless tobacco: Former User Alcohol use Yes Comment: social Drug use: No Sexual activity: Not on file Other Topics Concern Not on file Social History Narrative No narrative on file Family History Family History Problem Relation Age of Onset CHF (congestive heart failure) Father SC (myocardial infarction) Father 68 of [place] Heart Mother pacemaker Physical Examination: BP (!) 158/91 (BP Location: Right arm, Patient Position: Sitting, BP CUFF SIZE: Adult Large) | Pulse 60 | Resp 20 | Ht 6' 4" (1.93 m) | Wt 233 lb 1.6 oz ( 105.7 kg) | SpO2 99% | BMI 28.37 kg/m Constitutional: alert and oriented x 3 (person, place and date/time); no apparent distress ENT: normocephalic atraumatic, supple, no lymphadenopathy, no bruits, no JVD Lungs: clear to auscultation bilaterally Cardiovascular: S1, S2 normal, regular; no murmurs, rubs or gallops GI: soft; non-tender; non-distended; normoactive bowel sounds : not examined Musculoskeletal: Extremities: no clubbing, cyanosis, or edema Skin: no rashes Neuro: no focal deficits Cardiovascular testing: EKG: Sinus bradycardia, HR 54 bpm, minimal LVH Assessment/Plan: ICD-10-CM ICD-9-CM 1. Chest pain, unspecified type R07.9 786.50 2. Essential hypertension I10 401.9 3. Snores R06.83 786.09 Chest pain--Not entirely classical. It occurs with exertion and burping at the same time. Some GI features. But with exertional component. Will get an exercise nuclear stress test to assess ischemia, and ECHO to rule out structural heart disease. HTN--Will continue amlodipine and lisinopril. Low salt diet. Daily BP log. Snoring--Will get a sleep study to assess FEI. Patient was counseled for lifestyle modifications including: diet, exercise and weight loss Thank you for allowing us to participate in the care of your patient. Please feel free to contact usfor any questions or if we can be of further assistance. Addendum---11/07/2018---nuclear stress test showed possible inferior wall artifact , poor quality. Recommend GI evaluation first. Then follow up for reassessment. Addendum---01/13/2019---Low to intermediate cardiac risk for rotator cuff repair. Clint Soto MD, FAC, ECHO Air Conditioning Manager, Division of Cardiology [facility] documented in this encounter Plan of Treatment Date Type Specialty Care Team Description 01/15/2019 Office Visit Cardiology Clint Soto MD [address] [place] [address] [address] [place] [address] [phone] 01/15/2019 Fire Boss Visit Sleep Disorder [facility] [address] John [address] [place] [address] [phone] Diagnostic 1, Adc Sleep Lab Bed 01/20/2019 [facility] [address] John [address] [place] [address] [phone] Name Type Priority Associated Diagnoses Order Schedule EKG-12 LEAD ROUTINE HEART STATION Routine Essential hypertension Ordered: 10/02/2018 Health Maintenance Due Date Last Done Comments [...] this topic documented as of this encounter Procedures Procedure Name Priority Date/Time Associated Diagnosis Comments EKG-12 LEAD Routine 10/02/2018 9:53 AM CDT documented in this encounter Results NM MYOCARDIUM PERFUSION STRESS AND REST (11/03/2018 12:52 PM CDT) Specimen Impressions Performed At 1.The patient's electrocardiogram is nonischemic. PACS/VR/DOSE 2.The patient's clinical response is asymptomatic for angina. 3.Overall left ventricular systolic function is mildly reduced. The left ventricular ejection fraction is calculated to be 47% at rest and 48% at stress. 4.SPECT imaging reveals small size, mild degree reversible defects in apical inferior, mid inferior wall segments. This could be attenuation artifact Vs true defect. Clinical correlation recommended. I was present for the stress portion of the study. Narrative Performed At * * * * * * * * ORIGINAL REPORT * * * * * * * * PACS/VR/DOSE [facility] Report PROCEDURE: After obtaining witnessed informed consent, patient underwent a Regadenoson nuclear stress test using a one-day protocol. The patient was administered 0.4 mg. Regadenoson over 10 seconds intravenously. Myocardial perfusion SPECT imaging was performed at rest after the intravenous injection of 15.6 mCi of Technetium 99m Tetrofosmin. During the stress portion of the test 42.3 mCi of Technetium 99m Tetrofosmin was injected intravenously at 20 seconds after the Regadenoson infusion at peak pharmacologic effect. The stress gated SPECT study was acquired. Both stress and rest images were acquired with patient being supine. Images were processed according to ASNC guidelines. Short, horizontal long, long axis slices, raw data cines, polar plot, and wall motion analysis were reviewed. FINDINGS: *During the Regadenoson administration, no symptoms were noted. *Please refer ECG report for full details. *The overall technical quality of the study is good. *Raw cine data reveals no significant normality. *SPECT imaging reveals shows small size, mild degree reduced uptake of radiopharmaceutical agents apical inferior, mid inferior wall segments in stress images but not in rest images. *Rest of the SPECT imaging reveals shows normal uptake of radiopharmaceutical agents in all of wall segments in both stress and rest images. *Post-stress LV end-diastolic volume is 106 ml and LV end-systolic volume is 55 ml. *The left ventricle ejection fraction is calculated to be 47 % at rest and 48 % at stress. *Regional wall motion analysis of the left ventricle reveals mild global hypokinesis. *TID: 0.95 Procedure Note Rust, Radiant Results Inft User - 11/05/2018 9:42 PM CDT * * * * * * * * ORIGINAL REPORT * * * * * * * * [facility] Lexiscan Stress Test Report PROCEDURE: After obtaining witnessed informed consent, patient underwent a Regadenoson nuclear stress test using a one-day protocol. The patient was administered 0.4 mg. Regadenoson over 10 seconds intravenously. Myocardial perfusion SPECT imaging was performed at rest after the intravenous injection of 15.6 mCi of Technetium 99m Tetrofosmin. During the stress portion of the test 42.3 mCi of Technetium 99m Tetrofosmin was injected intravenously at 20 seconds after the Regadenoson infusion at peak pharmacologic effect. The stress gated SPECT study was acquired. Both stress and rest images were acquired with patient being supine. Images were processed according to ASNC guidelines. Short, horizontal long, long axis slices, raw data cines, polar plot, and wall motion analysis were reviewed. FINDINGS: * During the Regadenoson administration, no symptoms were noted. * Please refer ECG report for full details. * The overall technical quality of the study is good. * Raw cine data reveals no significant normality. * SPECT imaging reveals shows small size, mild degree reduced uptake of radiopharmaceutical agents apical inferior, mid inferior wall segments in stress images but not in rest images. * Rest of the SPECT imaging reveals shows normal uptake of radiopharmaceutical agents in all of wall segments in both stress and rest images. * Post-stress LV end-diastolic volume is 106 ml and LV end-systolic volume is 55 ml. * The left ventricle ejection fraction is calculated to be 47 % at rest and 48 % at stress. * Regional wall motion analysis of the left ventricle reveals mild global hypokinesis. * TID: 0.95 IMPRESSION 1. The patient's electrocardiogram is nonischemic. 2. The patient's clinical response is asymptomatic for angina. 3. Overall left ventricular systolic function is mildly reduced. The left ventricular ejection fraction is calculated to be 47% at rest and 48% at stress. 4. SPECT imaging reveals small size, mild degree reversible defects in apical inferior, mid inferior wall segments. This could be attenuation artifact Vs true defect. Clinical correlation recommended. I was present for the stress portion of the study. Performing Organization Address City/State/Zipcode Phone Number PACS/VR/DOSE ECHO ROUTINE W/DOPPLER COLOR Preferred Location: [facility] (2018 3:36 PM CDT) Specimen Performing Organization Address City[facility]State[facility] Phone Number ECHO documented in this encounter Visit Diagnoses Diagnosis Chest pain, unspecified type - Primary Essential hypertension Unspecified essential hypertension Snores Other dyspnea and respiratory abnormality documented in this encounter Insurance Payer Benefit Plan Subscriber ID Effective Dates Phone Address Type / Group BCBS [facility] [id number] 2018-Bianca [phone] [address] PPO/POS [place] t [id number] [place] [address] documented as of this encounter
--- OUTSIDE RECORDS SUMMARY | 2019-02-10 05:58 | XMS REPORT | Summary of Care ---
:1955 Author Organization [facility] Health Address [address] [place] [address] Care Team Providers Name Role Phone Robert St Primary Care Provider Unavailable Encounter Details Date Type Department Care Team Description 01/13/2019 Orders Only [facility] Doctor Unassigned, No [address] [facility] [place] [address] [address] [place] [address] Allergies No Known Allergiesdocumented as of this encounter (statuses as of 01/15/2019) Medications Medication Sig Dispensed Refills Start Date End Date Status vit A/vit C/vit Take by mouth 0 Active E/zinc/copper daily. (PRESERVISION AREDS ORAL) simvastatin 40 mg Take 40 mg by 0 Active tablet mouth at bedtime. triamterene-hydrochlor Take 1 capsule by 30 capsule 2 11/02/2018 Active othiazide (DYAZIDE) mouth every 37.5-25 mg per capsule morning. amLODIPine 10 mg Take 1 tablet by 0 11/03/2018 Active tablet mouth every morning. lisinopril 40 mg Take 1 tablet by 30 tablet 2 12/31/2018 Active tabletIndications: mouth every Essential hypertension morning. documented as of this encounter (statuses as of 01/15/2019) Active Problems Not on filedocumented as of this encounter (statuses as of 01/15/2019) Social History Tobacco Use Types Packs/Day Years [...] Treatment Date Type Specialty Care Team Description 01/20/2019 Office Visit Pulmonary Disease Sebastian Ferrera [address] [place] [address] [address] [place] [address] [phone] 07/19/2019 Office Visit Cardiology Clint Soto MD [address] [place] [address] [address] [place], [place] [id number] Health Maintenance Due Date Last Done Comments HEPATITIS C (HCV) SCREEN 1955 DTaP,Tdap,and Td Vaccines (1 - 01/17/1975 Tdap) COLONOSCOPY 01/17/2006 Zoster Recombinant Vaccine 01/17/2006 (SHINGRIX) (1 of 2) LUNG CANCER SCREEN: Recommended 01/17/2011 for age 55-80 with 30 + pack year history INFLUENZA VACCINE (#1) 2019 PNEUMOCOCCAL 0-64 YEARS COMBINED Aged Out No longer eligible based on SERIES patient's age to complete this topic documented as of this encounter Procedures Procedure Name Priority Date/Time Associated Diagnosis Comments MEDICAL Routine 01/13/2019 12:01 AM CDT RELEASE/CLEARANCE FORMS documented in this encounter Results Not on filedocumented in this encounter Insurance Payer Benefit Plan Subscriber ID Effective Dates Phone Address Type / Group [facility]BS [facility] [id number] 2018-Bianca [phone] [address] PPO/POS [place] [id number] [place] [address] documented as of this encounter
--- OUTSIDE RECORDS SUMMARY | 2019-02-10 05:58 | XMS REPORT | Summary of Care ---
:1955 Author Organization [facility] Address [address] [place] [address] Care Team Providers Name Role Phone Robert St Primary Care Provider Unavailable Reason for Referral (Routine) Status Reason Specialty Diagnoses / Referred By Referred To Procedures Contact Contact New Request Sleep Disorder Diagnoses Obstructive sleep apnea of adult [facility], Diagnostic Procedures SLEEP STUDY, ATTENDED [address] [place] [address] Reason for Visit Reason Comments New Patient Results HST (Routine) Status Reason Specialty Diagnoses / Referred By Referred To Procedures Contact Contact Closed Sleep Disorder Diagnoses FEI (obstructive sleep apnea) Clint Soto MD Diagnostic Procedures CONSULT/REFERRAL SLEEP CLINIC ADULT PULM Preferred Location: [address] [place] [address] Encounter Details Date Type Department Care Team Description 01/13/2019 Office Visit [facility] Sebastian Ferrera Obstructive sleep [facility] [address] [place] [address] [address] Al[address] (Primary Dx) [address] [place] [address] [place] [phone] Allergies No Known Allergiesdocumented as of this [...] tone when falling asleep and upon awakening. Wheelwright Sleepiness Scale score: 10 (0-24). Social History: [...] 01/15/2019 Office Visit Cardiology Clint Soto MD [address] [place] [address] [phone] Name Type Priority Associated Diagnoses Order Schedule [...] Effective Dates Phone Address Type / Group [facility] [id number] 2018-Bianca [phone] [address] PPO/POS [facility] [id number] [place] [address] documented as of this encounter
--- OUTSIDE RECORDS SUMMARY | 2019-02-10 05:58 | XMS REPORT | Summary of Care ---
:1955 Author Organization [facility] Address [address] [place] [address] Care Team Providers Name Role Phone MacielRobert vyas Primary Care Provider Unavailable Reason for Visit Reason Comments Follow-up 3mo Pre-op Clearance Rotator Cuff Sx Encounter Details Date Type Department Care Team Description 01/15/2019 Office Visit [facility] Clint Soto MD Chest pain, unspecified type (Primary Dx); Cardiology- [address] Preop cardiovascular exam; [address] [place] [address] FEI (obstructive sleep apnea) Drive, [address] [place] [address] [phone] Allergies No Known Allergiesdocumented as of this encounter (statuses as of 01/15/2019) Medications Medication Sig Dispensed Refills Start Date End Date Status vit A/vit C/vit Take by 0 Active E/zinc/copper mouth daily. (PRESERVISION AREDS ORAL) simvastatin 40 mg Take 40 mg by 0 Active tablet mouth at bedtime. triamterene-hydrochlo Take 1 30 capsule 2 11/02/2018 Active rothiazide (DYAZIDE) capsule by 37.5-25 mg per mouth every capsule morning. amLODIPine 10 mg Take 1 tablet 0 11/03/2018 Active tablet by mouth every morning. lisinopril 40 mg Take 1 tablet 30 tablet 2 12/31/2018 Active tabletIndications: by mouth Essential every hypertension morning. folic Take by 0 Discontinued acid/multivit-min/lut mouth daily. 9 ein (CENTRUM SILVER ORAL) acetaminophen/diphenh Take by 0 Discontinued ydramine (TYLENOL PM mouth as 9 ORAL) needed. Bifidobacterium Take by 0 Discontinued infantis (ALIGN ORAL) mouth daily. 9 sucralfate 1 gram Take 3 g by 0 Discontinued tablet mouth before 9 meals and at bedtime. BENZONATATE ORAL Take by 0 Discontinued mouth 3 9 (three) times daily. documented as of this encounter [...] Sign Reading Time Taken Comments Blood Pressure 108/72 01/15/2019 10:33 AM CDT Pulse 83 01/15/2019 10:33 AM CDT Temperature - - Respiratory Rate 20 01/15/2019 10:33 AM CDT Oxygen Saturation 97% 01/15/2019 10:33 AM CDT Inhaled Oxygen Concentration - - Weight 106.9 kg (235 lb 9.6 oz) 01/15/2019 10:33 AM CDT Height 190.5 cm (6' 3") 01/15/2019 10:33 AM CDT Body Mass Index 29.45 01/15/2019 10:33 AM CDT documented in this encounter Progress Notes Clint Soto MD - 01/15/2019 10:20 AM CDT CARDIOLOGY CLINIC NOTE 01/15/2019 Reason for Referral/Presenting Complaint: chest pain PCP: [...] slimy taste with nausea. Barium test normal. Underwent GI endoscopy. BP has been high. He snores. Going to have rotator cuff repair. Stated that when working outside in hot whether, he gets abdominal pressure, then he feels that he cannot burp fast enough to get rid of the gas. It accumulates and pushes the chest pain. If he gets inside and drinks something cool he will then burp which will relieve the chest pressure. Review of Systems: General: (-) fever, (-) [...] (-) anxiety, (-) depression Past Medical History: No past medical history on file. Current Medications: Current Outpatient Medications Medication Sig Dispense Refill lisinopril 40 mg tablet Take 1 tablet by mouth every morning. 30 tablet 2 amLODIPine 10 mg tablet Take 1 tablet by mouth every morning. triamterene-hydrochlorothiazide (DYAZIDE) 37.5-25 mg per capsule Take 1 capsule by mouth every morning. 30 capsule 2 simvastatin 40 mg tablet Take 40 mg by mouth at bedtime. vit A/vit C/vit E/zinc/copper (PRESERVISION AREDS ORAL) Take by mouth daily. No current facility-administered medications for this visit. Social History: Social History Socioeconomic History Marital status: Spouse name: Not on file Number of children: Not on file Years of education: Not on file Highest education level: Not on file Occupational History Not on file Social Needs Financial resource strain: Not on file Food insecurity: Worry: Not on file Inability: Not on file Transportation needs: Medical: Not on file Non-medical: Not on file Tobacco Use Smoking status: Former Smoker Smokeless tobacco: Former User Substance and Sexual Activity Alcohol use: Yes Comment: social Drug use: No Sexual activity: Not on file Lifestyle Physical activity: Days per week: Not on file Minutes per session: Not on file Stress: Not on file Relationships Social connections: Talks on phone: Not on file Gets together: Not on file Attends jew service: Not on file Active member of club or organization: Not on file Attends meetings of clubs or organizations: Not on file Relationship status: Not on file Intimate partner violence: Fear of current or ex partner: Not on file Emotionally abused: Not on file Physically abused: Not on file Forced sexual activity: Not on file Other Topics Concern Not on file Social History Narrative Not on file Family History Family History Problem Relation Age of Onset CHF (congestive heart failure) Father CT (myocardial infarction) Father [address] Heart Mother pacemaker Physical Examination: BP 108/72 (BP Location: Left arm, Patient Position: Sitting, BP CUFF SIZE: Adult Large) | Pulse 83| Resp 20 | Ht 6' 3" (1.905 m) | Wt 235 lb 9.6 oz ( 106.9 kg) | SpO2 97% | BMI 29.45 kg/m Constitutional: alert and oriented x 3 [...] Chest pain, unspecified type R07.9 786.50 2. Preop cardiovascular exam Z01.810 V72.81 Chest pain--Mostly dyspepsia. Nuclear stress test showed no major concerns, possibly some artifact without clearcut ischemia. However we are open to getting a definitive diagnosis with [facility] if necessary. Low to intermediate cardiac risk for rotator cuff repair. HTN--Will continue amlodipine and lisinopril. Low salt diet. Daily BP log. BP control is good now. FEI--severe FEI. Referred to sleep clinic. Patient was counseled for lifestyle modifications including: diet, exercise and weight loss Clint Soto MD, FACC, ECHO Building Construction Teacher, Division of Cardiology [facility] documented in this encounter Plan of Treatment Date Type Specialty Care Team Description 01/20/2019 Office Visit Pulmonary Disease Sebastian Ferrera T [address] [place] [address] Dr [address]o [address] [place], [place] [address] 07/19/2019 Office Visit Cardiology Clint Soto MD [address] [facility] [address] [place] [address] Health Maintenance Due Date Last Done Comments [...] filedocumented in this encounter Visit Diagnoses Diagnosis Chest pain, unspecified type - Primary Preop cardiovascular exam Pre-operative cardiovascular examination FEI (obstructive sleep apnea) Obstructive sleep apnea (adult) (pediatric) documented in this encounter Insurance Payer Benefit Plan Subscriber ID Effective Dates Phone Address Type / Group [facility] [id number] 2018-Bianca [phone] [address] PPO/POS [place] t 7 [id number] [place] [address] documented as of this encounter
--- OUTSIDE RECORDS SUMMARY | 2019-02-10 05:58 | XMS REPORT | Summary of Care ---
:1955 Author Organization [facility] Address [address] [place] [address] Care Team Providers Name Role Phone MacielRobert vyas Primary Care Provider Unavailable Reason for Visit Reason Comments Follow-up 3mo Pre-op Clearance Rotator Cuff Sx Encounter Details Date Type Department Care Team Description 01/15/2019 Office Visit [facility] Clint Soto MD Chest pain, unspecified type (Primary Dx); Cardiology- [address] Preop cardiovascular exam; [address] [place] [address] FEI (obstructive sleep apnea) Drive, [address] [place] [address] [phone] Allergies No Known Allergiesdocumented as of this [...] file Gets together: Not on file Attends baptist service: Not on file Active member of [...] [place] Heart Mother pacemaker Physical Examination: BP 108/72 [...] open to getting a definitive diagnosis with [facility] if necessary. Low to intermediate cardiac risk for rotator cuff repair. HTN--Will continue amlodipine and lisinopril. Low salt diet. Daily BP log. BP control is good now. FEI--severe FEI. Referred to sleep clinic. Patient was counseled for lifestyle modifications including: diet, exercise and weight loss Clint Soto MD, FACC, ECHO Crossing Guard, Division of Cardiology [facility] documented in this encounter Plan of Treatment Date Type Specialty Care Team Description 01/20/2019 Office Visit Pulmonary Disease Sebastian Ferrera T [address] [place] [address] Dr Alvaro [address] [place], [place] [address] 07/19/2019 Office Visit Cardiology Clint Soto MD 146 [facility] [address] [place] [address] Health Maintenance Due Date Last [...] Effective Dates Phone Address Type / Group [facility] [id number] 2018-Bianca [phone] [address] PPO/POS [place] t 7 [id number] [place] [address] documented as of this encounter
--- OUTSIDE RECORDS SUMMARY | 2019-02-10 05:58 | XMS REPORT | Summary of Care ---
:1955 Author Organization [facility] Address [address] [place] [address] Care Team Providers Name Role Phone Robert St Primary Care Provider Unavailable Reason for Referral (Routine) Status Reason Specialty Diagnoses / Referred By Referred To Procedures Contact Contact New Request Sleep Disorder Diagnoses Obstructive sleep apnea of adult [facility], Diagnostic Procedures SLEEP STUDY, ATTENDED [address] John [address] [place] [address] Reason for Visit Reason Comments New Patient Results HST (Routine) Status Reason Specialty Diagnoses / Referred By Referred To Procedures Contact Contact Closed Sleep Disorder Diagnoses FEI (obstructive sleep apnea) Clint Soto MD Diagnostic Procedures CONSULT/REFERRAL SLEEP CLINIC ADULT PULM Preferred Location: [address] [place] [address] Encounter Details Date Type Department Care Team Description 01/13/2019 Office Visit [facility] Sebastian Ferrera Obstructive sleep Pulmonary Clinic [address] [place] [address] ap[address] Alvar[address] (Primary Dx) [address] [place] [address] [place], [place] [phone] Allergies No Known Allergiesdocumented as of this [...] tone when falling asleep and upon awakening. [place] Sleepiness Scale score: 10 (0-24). Social History: [...] 01/15/2019 Office Visit Cardiology Clint Soto MD [address] [place] [address] [phone] 01/15/2019 [employer] Rolls Visit Sleep Disorder Sebastian Ferrera [address] [place] [address] Dr [address] [place] [address] [phone] Diagnostic 1, [facility] Sleep Lab Bed 01/20/2019 Office Visit Pulmonary Disease Sebastian Ferrera [address] [place] [address] Dr [address] [place] [address] [phone] Name Type Priority Associated Diagnoses Order Schedule [...] Dates Phone Address Type / Group BCBS [facility] [id number] 2018-Bianca [phone] [address] PPO/POS [place] t 7 [id number] [place] [address] documented as of this encounter
--- OUTSIDE RECORDS SUMMARY | 2019-02-10 05:59 | XMS REPORT | Summary of Care ---
:1955 Author Organization [facility] Address [address] [place] [address] Care Team Providers Name Role Phone Robert St Primary Care Provider Unavailable Reason for Visit Reason Comments Appointment Encounter Details Date Type Department Care Team Description 2019 Telephone [facility] Pulmonary Sebastian Ferrera Appointment Clinic [address] [facility] [address] [facility] [address], [address] [place] [address] [place] [address] Allergies No Known Allergiesdocumented as of this encounter (statuses as of 2019) Medications Medication Sig Dispensed Refills Start Date [...] as of this encounter (statuses as of 2019) Active Problems Not on filedocumented as of this encounter (statuses as of 2019) Social History Tobacco Use Types Packs/Day Years [...] Treatment Date Type Specialty Care Team Description 01/25/2019 Energy Attorney [facility] [address] [place], [place] [address] Diagnostic 1, [facility] Sleep Lab Bed 04/14/2019 [facility] [address] [place], [place] [address] 07/19/2019 Office Visit Cardiology Clint Soto MD [address] [place] [address] [address] [place], [place] [phone] Health Maintenance Due Date Last Done Comments [...] Dates Phone Address Type / Group BCBS OF [facility] [id number] 2018-Bianca [phone] [address] PPO/POS [place] t 7 [id number] [place] [address] documented as of this encounter
--- OUTSIDE RECORDS SUMMARY | 2019-02-10 05:59 | XMS REPORT | Summary of Care ---
:1955 Author Organization [facility] Address [address] [place] [address] Care Team Providers Name Role Phone Robert St Primary Care Provider Unavailable Reason for Referral (Routine) Status Reason Specialty Diagnoses / Referred By Referred To Procedures Contact Contact New Request Sleep Disorder Diagnoses Observed sleep apnea [facility], Diagnostic Procedures HOME SLEEP TEST Sebastian Rhoades [address] [place] [address] [address] Reason for Visit Reason Comments Sleep Apnea Encounter Details Date Type Department Care Team Description 01/19/2019 Telephone [facility] Pulmonary Sebastian Ferrera Sleep Apnea Clinic [address] [place] [address] , [address] [address] [place] [address] Allergies No Known Allergiesdocumented as of this encounter (statuses as of 01/19/2019) Medications Medication Sig Dispensed Refills Start Date [...] as of this encounter (statuses as of 01/19/2019) Active Problems Not on filedocumented as of this encounter (statuses as of 01/19/2019) Social History Tobacco Use Types Packs/Day Years [...] Date Type Specialty Care Team Description 01/25/2019 Dinkey Motor Operator Visit Sleep Disorder [address] John [address] [place] [address] [phone] Diagnostic 1, [facility] Sleep Lab Bed 04/14/2019 Office Visit Pulmonary Disease [facility] [address] John [address] [place] [address] [phone] 07/19/2019 Office Visit Cardiology Clint Soto MD [address] [place] [address] [address] [place], [place] [address] Name Type Priority Associated Diagnoses Order Schedule HOME SLEEP TEST PROCEDURES Routine Observed sleep apnea Ordered: 01/19/2019 Health Maintenance Due Date Last Done Comments [...] filedocumented in this encounter Visit Diagnoses Diagnosis Observed sleep apnea - Primary Unspecified sleep apnea documented in this encounter Insurance Payer Benefit Plan Subscriber ID Effective Dates Phone Address Type / Group [facility] [id number] 2018-Bianca [phone] [address] PPO/POS [place] t 7 [id number] [place] [address] documented as of this encounter
--- OUTSIDE RECORDS SUMMARY | 2019-02-10 05:59 | XMS REPORT | Summary of Care ---
:1955 Author Organization [facility] Health Address [address] [place] [address] Care Team Providers Name Role Phone Robert St Primary Care Provider Unavailable Encounter Details Date Type Department Care Team Description 01/25/2019 Orders Only [facility] Doctor Unassigned, No [address] [facility] [place] [address] [address] [place] [address] Allergies No Known Allergiesdocumented as of this encounter (statuses as of 01/26/2019) Medications Medication Sig Dispensed Refills Start Date [...] as of this encounter (statuses as of 01/26/2019) Active Problems Not on filedocumented as of this encounter (statuses as of 01/26/2019) Social History Tobacco Use Types Packs/Day Years [...] Treatment Date Type Specialty Care Team Description 04/14/2019 Office Visit Pulmonary Disease Sebastian Ferrera [address] [place] [address] Dr Alvaro [address] [place] [address] [phone] 07/19/2019 Office Visit Cardiology Clint Soto MD [address] [place] [address] [address] [place], [place] [phone] Health Maintenance Due Date Last Done Comments [...] Procedure Name Priority Date/Time Associated Diagnosis Comments SLEEP STUDY DATA REPORT Routine 01/25/2019 12:01 AM CDT documented in this encounter Results Not on filedocumented in this encounter Insurance Payer Benefit Plan Subscriber ID Effective Dates Phone Address Type / Group BCBS OF [facility] [id number] 2018-Bianca [phone] [address] PPO/POS [place] t 7 [id number] [place] [address] documented as of this encounter
--- OUTSIDE RECORDS SUMMARY | 2019-02-10 05:59 | XMS REPORT | Summary of Care ---
:1955 Author Organization [facility] Address [address] [place] [address] Care Team Providers Name Role Phone Maciel Robert Primary Care Provider Unavailable Reason for Visit Reason Comments APNEA (Routine) Status Reason Specialty Diagnoses / Referred By Referred To Procedures Contact Contact Closed Sleep Disorder Diagnoses Obstructive sleep apnea of adult Sebastian Ferrera Diagnostic Procedures SLEEP STUDY, ATTENDED [address] [place] [address] Encounter Details Date Type Department Care Team Description 01/25/2019 Skiver Operator Visit [facility] [address] [place] [address] Apnea Disorder Center- , [facility] Sleep Lab Bed [address] [place] [address] Allergies No Known Allergiesdocumented as of this [...] 04/14/2019 Office Visit Pulmonary Disease Sebastian Ferrera [address]varo [address] [place], [place] [address] 07/19/2019 Office Visit Cardiology Clint Soto MD [address] [place] [address] [address] [place], [place] [address] Health Maintenance Due Date Last Done Comments [...] filedocumented in this encounter Visit Diagnoses Diagnosis Apnea documented in this encounter Insurance Payer Benefit Plan Subscriber ID Effective Dates Phone Address Type / Group BCBS [facility] [id number] 2018-Bianca [phone] [address] PPO/POS [place] t 7 [id number] [place] [address] documented as of this encounter
[2019-02-10] MEDS ORDERED: CEFAZOLIN/SWI 2gm 2 GM/20 ML SYR ONE (06:15)
[2019-02-10] MEDS ORDERED: Ringers Lactate 1,000 ML IV ONE ×3 (06:15→08:29)
[2019-02-10] MEDS ORDERED: FENTANYL CITR 100 MCG/2 ML ONE (06:37)
[2019-02-10] MEDS ORDERED: MIDAZOLAM HCL 2 MG/2 ML INJ ONE (06:37)
[2019-02-10] MEDS ORDERED: LIDOCAINE 2% MPF 5 ML VIAL ONE (06:37)
[2019-02-10] MEDS ORDERED: PROPOFOL 200 MG/20 ML VIAL IV ONE (06:37)
[2019-02-10] MEDS ORDERED: ROCURONIUM 50 MG/5 ML VIAL IV ONE (06:38)
[2019-02-10] MEDS ORDERED: dexAMETHasone 4 MG/ML VIAL ONE (06:45)
[2019-02-10] MEDS ORDERED: ROPLVACAINE HCL 20 ML ONE (06:45)
[2019-02-10] MEDS ORDERED: NS 0.9% VIAL 10 ML ONE (06:50)
[2019-02-10] MEDS ORDERED: EPINEPHRINE/PF 1 MG/ML AMP ONE (07:08)
[2019-02-10] MEDS ORDERED: EPHEDRINE SULF 50 MG/ML VIAL ONE (08:07)
[2019-02-10] MEDS ORDERED: KETOROLAC 30 MG/ML INJ ONE (09:28)
[2019-02-10] MEDS: HYDROMORPHONE HCL 2 MG/ML inj ONE ×2 (10:06→10:22)
--- NOTE | 2019-02-10 10:26 | P.BOP ---
Preoperative diagnosis: right shoulder rotator cuff tear, SLAP tear Postoperative diagnosis: same Primary procedure: right shoulder arthroscopic rotator cuff repair Secondary procedure: right shoulder arthroscopic SLAP debridement Other procedure(s): right shoulder open subpectoral biceps tenodesis Estimated blood loss: 10 cc Specimen: none Findings: see dictation Anesthesia: General Complications: None Implants: 4.75 x 19 mm swivelock, 7x 19 mm biotenodesis screw Fluids & blood products: per anesthesia Transferred to: Recovery Room Condition: Good
--- NOTE | 2019-02-10 10:41 | RAD REPORT ---
EXAM DESCRIPTION: RAD - Shoulder 1 View - 02/10/2019 10:30 am CLINICAL HISTORY: POST-OP Postop right shoulder COMPARISON: No comparisons FINDINGS: Mild soft tissue swelling is seen. Mild AC joint and glenohumeral joint arthritic changes. No acute fracture or dislocation.
[2019-02-10] MEDS ORDERED: HYDROCODONE/APAP 7.5/325 MG TAB PO ONE (11:00)
[2019-02-10] MEDS ORDERED: HYDROCODONE/APAP 7.5/325 MG TAB ONE (11:00)
[2019-02-10 12:32] VITALS: BP 105/80; TEMP 97; O2SAT 94
--- NOTE | 2019-02-12 08:40 | OP ---
Date of Procedure: 02/10/2019 Surgeon: Keyshawn Gerard MD Preoperative Diagnoses: 1.Right shoulder rotator cuff tear. 2.Right shoulder SLAP tear. Postoperative Diagnoses: 1.Right shoulder rotator cuff tear. 2.Right shoulder SLAP tear. Procedure Performed: 1.Right shoulder arthroscopic rotator cuff repair. 2.Right shoulder arthroscopic SLAP tear, subscapularis tear debridement. 3.Right shoulder open subpectoral biceps tenodesis. Anesthesia: General endotracheal. Fluids: Per Anesthesia record. Estimated Blood Loss: 10 cc. Complications: None. Implants: 4.75 x 19 mm Arthrex SwiveLock and a 7 x 19 mm Arthrex Bio-Tenodesis Screw. Indications For Procedure: Martín is a 64-year-old male, presented to my clinic with signs, symptom s, and MRI findings consistent with a right shoulder rotator cuff tear as well as a SLAP tear. I dis cussed with the patient at length risks and benefits associated with operative and nonoperative treat ment. He expressed understanding and elected to proceed with operative treatment. Description Of Procedure: After informed consent was obtained, the patient was identified in the pre operative holding area. The right upper extremity was marked. The patient was then brought back to the PACU, underwent an interscalene block to the right upper extremity performed by Anesthesia. The patient was then taken back to the operating room, transferred to the operating table in supine fashi on and placed under general endotracheal anesthesia. He was placed in a beach chair position with ex tremities well padded. The right upper extremity was examined. The patient had full range of motion his right shoulder. Right upper extremity was then prepped and draped in usual sterile f ashion. A time-out was initiated. Correct patient and procedure were confirmed and identified. The patient had received his preoperative prophylactic antibiotics. Via the posterior portal position, a spinal needle was introduced in the glenohumeral joint and the shoulder joint was injected with 30 cc of normal saline. A posterior portal was created and the arthroscope was brought in via the poste rior portal position and diagnostic arthroscopy was performed. A standard anterior portal was create d and a cannula was placed. Patient was noted to have a type 2 SLAP tear with significant fraying of the superior labrum. A biceps tenotomy was performed using meniscal biter. SLAP tear was then debr ided using the arthroscopic shaver. The patient was noted to have some grade 3 chondromalacia change s over the inferior aspect of the glenoid surface. Loose chondral edges were then debride d using the arthroscopic shaver. Patient was noted to have small tear at the superior aspect of the subscapularis. This was debrided using arthroscopic shaver. It was noticed the patient had some sig nificant fraying at the undersurface of supraspinatus with a noted tear on the articular surface of t he supraspinatus supraspinatus. Lateral portal was created. There was noted to be ____ full-thickness tear. The supraspinatus tear was then debrided using arthroscopic shaver both in side and outside of the joint. Arthroscope was brought into the subacromial space and a subacromial bursectomy was performed. Patient was noted to have some significant hyperemia of this supraspinatus the area corresponding to the undersurface tearing of the supraspinatus was identified __ the devitalized tissue was debrided and it was consistent with a full-thickness tear. An Ar threx SutureTape was then placed an inverted horizontal mattress suture using a FastPass Scorpion sut ure passer. It was placed on the anterior posterior aspect of the tear. It was then used to reduce the rotator cuff tear under greater tuberosity. A single 4.75 mm x 19 mm Arthrex SwiveLoc k was placed reduction of the tear under greater tuberosity. Remaining sutures were then cut. There was no significant fraying of the coracoacromial ligament. The arthroscopic instruments were then removed. underneath it. Approximately a 3 cm incision was made just medial to the pec insertion on the proximal humerus. Dissection was taken down to fascia, which was split, divided. The pec tendon was then gently retracted superiorly. The long head of the biceps w as identified, brought out through the incision, measured approximately 3 cm from the musculotendinou s junction and whipstitched using the . The remaining tendon was then cut. A guide pin wa s then placed within bicipital groove followed by 7.5 mm reamer and a unicortical tunnel was made. A Arthrex Bio-Tenodesis screw was then used screw within the tunnel and there wa s good fixation noted. The wounds were then irrigated thoroughly with normal saline. Subcutaneous t issue was approximated using a 2-0 Vicryl. Skin was approximated using a 3-0 Monocryl. Sterile dres sings were applied. Patient awakened and transferred to PACU in stable condition after a shoulder im mobilizer was put into position. Postoperative Plan: The patient will be nonweightbearing . He will follow up in my clinic next week for wound check. We will begin rotator cuff rehab 3 weeks postoperatively. FREDA/TIMO Voice ID: [id number] Report ID: [id number]
== END 2019-02-10 12:19 | disposition home or self-care (01) ==
LOC: OR 05:48
PROVIDERS: ATTEND Orthopaedic Surgery Sports Medicine
PROC: 0RBJ4ZZ Excision of Right Shoulder Joint, Percutaneous Endoscopic Approach (ICD-10-PCS; 2019-02-10)
PROC: 0LS10ZZ Reposition Right Shoulder Tendon, Open Approach (ICD-10-PCS; 2019-02-10)
PROC: 0RHJ04Z Insertion of Internal Fixation Device into Right Shoulder Joint, Open Approach (ICD-10-PCS; 2019-02-10)
PROC: 0LQ14ZZ Repair Right Shoulder Tendon, Percutaneous Endoscopic Approach (ICD-10-PCS; principal; 2019-02-10 07:30)
DX: M75.101 Unspecified rotator cuff tear or rupture of right shoulder, not specified as traumatic (principal); S43.431A Superior glenoid labrum lesion of right shoulder, initial encounter; M75.21 Bicipital tendinitis, right shoulder; M75.41 Impingement syndrome of right shoulder; M75.51 Bursitis of right shoulder; M54.12 Radiculopathy, cervical region; I10 Essential (primary) hypertension; G47.33 Obstructive sleep apnea (adult) (pediatric); K21.9 Gastro-esophageal reflux disease without esophagitis; E78.00 Pure hypercholesterolemia, unspecified; Z82.49 Family history of ischemic heart disease and other diseases of the circulatory system
CPT/HCPCS: 36415; 71046; 73020; 80048; 85025; 85610; 85730; J0171; J0690; J1170; J2250; J2704; J2795; J3010

== ENCOUNTER 2020-06-30 08:24 | Day surgery (SDC) | payer BC ==
--- NOTE | 2020-06-26 11:07 | RAD REPORT ---
EXAM DESCRIPTION: RAD - Chest Pa And Lat (2 Views) - 06/26/2020 11:02 am CLINICAL HISTORY: preop Chest pain. COMPARISON: Chest Pa And Lat (2 Views) dated 02/04/2019 FINDINGS: The lungs are clear. The heart is normal in size. No displaced fractures. IMPRESSION: No acute or concerning finding suspected.
[2020-06-26 11:24] LABS: Hematocrit 36.4 % (39.6-49.0); Lymphocytes % 12.3 % (15.3-44.8); MPV 7.7 fL (7.6-11.3); RBC Red Blood Cell Count 4.03 M/uL (4.33-5.43)
[2020-06-26 11:33] LABS: Potassium 3.9 mmol/L (3.5-5.1)
[2020-06-26 11:42] LABS: Protime INR 1.06
--- OUTSIDE RECORDS SUMMARY | 2020-06-30 08:27 | XMS REPORT | Continuity of Care Document ---
:1955 Author Organization [employer] Care Team Providers Name Role Phone [employer] Unavailable Un available Problems Problem Status Onset Classification Date Comments Sourc e Date Reported Benign hypertension Active Problem 03/25/2020 Data [facility] (disorder) migrated [facility] from [place] [place] on 10/29/14. Neuro Carpal tunnel syndrome Active Problem 03/25/2020 [facility] (disorder) Neuro Hypercholesterolemia Active Problem 03/25/2020 Data MH (disorder) migrated [facility] from [place] [place] on 10/29/14. Neuro HYPERCHOLESTEROLEMIA Active Condition 09/13/2014 [facility] Group HTN Active Condition 09/13/2014 [facility] Medications Medication Details Route Status Patient Ordering Order Source Instructions Provider Date lisinopril 20 mg See Active oral tablet [facility] 018 Medical ns, # 30 Group tab, Refill(s) 6, TAKE 1 TABLET BY MOUTH EVERY DAY, Pharmacy: [facility] #[id number] lisinopril 20 mg 1 tablet, No Longer oral tablet PO, Daily, Active 018 Medical 0 Group Refill(s) amLODIPine 10 mg See Active oral tablet [facility] 018 Medical ns, TAKE 1 Group TABLET BY MOUTH EVERY DAY, # 90 tab, 3 Refill(s), [facility]acy: [id number] simvastatin 40 See Active mg oral tablet [facility] 018 Medica l ns, TAKE 1 Group TABLET BY MOUTH AT BEDTIME, # 90 tab, 3 Refill(s), Pharmacy: [facility] #[id number] lisinopril 10 mg See No Longer oral tablet [facility] Active 018 Medical ns, TAKE 2 Group TABLET BY MOUTH EVERY DAY, # 180 tab, 3 Refill(s), Pharmacy: [facility] #[id number] lisinopril 10 mg See Active oral tablet [facility] 018 Medical ns, TAKE 2 Group TABLET BY MOUTH EVERY DAY, # 180 tab, 3 Refill(s), Pharmacy: [facility] #[id number] simvastatin 40 See Active MH mg oral tablet [facility] 018 Medica l ns, # 90 Group tab, Refill(s) 3, TAKE 1 TABLET BY MOUTH AT BEDTIME, Pharmacy: [facility] #[id number] triamcinolone 40 mg, Inactive ACETONIDE 40 Route: IM, 018 Medical mg/mL injectable ONCE, Group suspension Dosing Weight 105.057, kg, (KENALOG), Start date: 08/19/17 14:59:00 CDT, Stop date: 08/19/17 14:59:00 CDT benzonatate 100 100 mg = 1 No Longer MH mg oral capsule cap, PO, Active 018 Medical TID, do Group not crush or chew, X 10 day, # 30 cap, 0 Refill(s), Pharmacy: [facility] #[id number] Levofloxacin 500 500 mg = 1 No Longer MH MG Oral Tablet tab, PO, Active 018 Medical [Levaquin] Q24H, X 7 Group day, # 7 tab, 0 Refill(s), Pharmacy: [facility] #[id number] sucralfate 1 g 1 gm = 1 Active oral tablet tab, PO, 017 Medical Before Group Meals & Bedtime, # 120 tab, 1 Refill(s), Pharmacy: [facility] #[id number] omeprazole 20 mg 20 mg = 1 Active oral enteric tab, PO, 017 Medical coated tablet QAM, # 30 Group tab, 2 Refill(s), Pharmacy: [facility] #[id number] Ascorbic Acid 1 tab, PO, Active 113 MG / Beta Daily, 0 017 Medical Carotene 7160 MG Refill(s) Group / cuprous oxide 0.4 MG / dl-alpha tocopheryl acetate 100 UNT / Zinc Oxide 17.4 MG Oral Tablet [PreserVision] AMLODIPINE 1 po qam Active BESYLATE 5 MG 015 Medical TABS Group LISINOPRIL-HYDRO 1 po qd Active CHLOROTHIAZIDE 013 Medical 10-12.5 MG TABS Group LISINOPRIL-HYDRO 1 po qd Active CHLOROTHIAZIDE 013 Medical 10-12.5 MG TABS Group SIMVASTATIN 20 1 po qd Active MH MG TABS 012 Medical Group SIMVASTATIN 20 1 po qd Active MH MG TABS 012 Medical Group Allergies, Adverse Reactions, Alerts Substance Category Reaction Severity Reaction Status Date Comments S ource type Reported PCN Drug PCN MH allergy 3 Medical Group penicillins Assertion Drug Active Data [facility] <sup>1</sup allergy 3 migrated [place] [facility] > from [employer] on 12/29/14. Originally documented as PCN. Immunizations No Data Provided for This Section Results Order Name Results Value Reference Date Interpretation Comments Deb rce Range Chemistry SODIUM 138 135 - 143 [...] Group Chemistry CALCIUM 9.4 8.6 - 9.8 102013 Medical Group Chemistry CREATININE 0.73 0.46 - [...] Date Comments Source Weight 110.966 01/15/2018 [facility] p BMI Calculated 30.58 01/15/2018 Medical Gr oup Height 190.5 cm 01/15/2018 Medical Gr[facility] p Heart Rate 80 01/15/2018 Medical Gr[facility] p Systolic (mm Hg) 151 01/15/2018 Medical Group Diastolic (mm Hg) 96 01/15/2018 Medical Group Weight 106.989 10/09/2017 Medical Gr[facility] p BMI Calculated 29.48 10/09/2017 Medical Gr oup Heart Rate 68 10/09/2017 Medical Grou p Height 190.5 cm 10/09/2017 Medical Gr[facility] p Systolic (mm Hg) 153 10/09/2017 Medical Group Diastolic (mm Hg) 91 10/09/2017 Medical Group Weight 105.057 08/19/2017 Medical Grou p Heart Rate 67 08/19/2017 Medical Grou p Respitory Rate 16 08/19/2017 Medical Gr oup Systolic (mm Hg) 140 08/19/2017 Medical Group Diastolic (mm Hg) 90 08/19/2017 Medical Group Weight 103.636 05/21/2017 Medical Grou p Heart Rate 64 05/21/2017 Medical Grou p Respitory Rate 16 05/21/2017 Medical Gr oup Systolic (mm Hg) 134 05/21/2017 Medical Group Diastolic (mm Hg) 74 05/21/2017 Medical Group BMI Calculated 29.07 05/07/2017 Medical Gr oup Weight 105.511 05/07/2017 Medical Gr[facility] p Systolic (mm Hg) 112 05/07/2017 Medical Group Diastolic (mm Hg) 74 05/07/2017 Medical Group Height 190.5 cm 05/07/2017 Medical Grou p Respitory Rate 14 05/07/2017 Medical Gr oup Heart Rate 76 05/07/2017 Medical Grou p Weight 106.818 04/16/2017 Medical Grou p BMI Calculated 29.43 04/16/2017 Medical Gr oup Height 190.5 cm 04/16/2017 Medical Grou p Systolic (mm Hg) 138 04/16/2017 Medical Group Diastolic (mm Hg) 86 04/16/2017 Medical Group Heart Rate 59 04/16/2017 Medical Grou p Weight 216 09/13/2014 Medical Grou p Temperature Oral (F) 97 F 09/13/2014 [facility] Heart Rate 64 09/13/2014 Medical Grou p Systolic (mm Hg) 160 09/13/2014 Medical Group Diastolic (mm Hg) 94 09/13/2014 Medical Group Weight 228 03/15/2014 Medical Grou p Temperature Oral (F) 97 F 03/15/2014 [facility] Heart Rate 57 03/15/2014 Medical Grou p Systolic (mm Hg) 166 03/15/2014 Medical Group Diastolic (mm Hg) 89 03/15/2014 Medical Group Weight 231 07/23/2013 Medical Grou p Temperature Oral (F) 98 F 07/23/2013 [facility] Heart Rate 72 07/23/2013 Medical Grou p Systolic (mm Hg) 143 07/23/2013 Medical Group Diastolic (mm Hg) 87 07/23/2013 Medical Group Weight 233 01/21/2013 Medical Grou p Heart Rate 88 01/21/2013 Medical Grou p Systolic (mm Hg) 130 01/21/2013 Medical Group Diastolic (mm Hg) 84 01/21/2013 Medical Group Weight 220 07/23/2012 Medical Grou p Heart Rate 88 07/23/2012 Medical Grou p Systolic (mm Hg) 120 07/23/2012 Medical Group Diastolic (mm Hg) 80 07/23/2012 Medical Group Height 74 01/09/2012 Medical Grou p Weight 230 01/09/2012 Medical Grou p Heart Rate 80 01/09/2012 Medical Grou p Systolic (mm Hg) 150 01/09/2012 Medical Group Diastolic (mm Hg) 78 01/09/2012 Medical Group Encounters Location Location Encounter Encounter Reason Attending ADM DC Stat us Source Details Type Number For Provider Date Date Visit [facility] Lab Report [id number] Shar[place] 03/14 03/14 [place] [facility] [address] shannen Merino MD Group Internal Med [facility] [place] Office [id number] 03/15 [place] [facility] [place] [address] shannen Merino MD Group Internal Med [facility] Lab Report [id number] Sharif 09/06 09/06 [place] [facility] [address]annen Merino MD Group Internal Med [facility] South Office [id number] Sharif 09/13 09/13 [place] [facility] [place] [address] shannen [facility] Outpatient [id number] 02/21 [facility] [place] [facility] [id number] 08/17 [facility] [id number] 02/22 [facility] [place] [facility] [id number] 08/26 [facility] [id number] 09/05 [facility] [id number] 04/16 [facility] Outpatient [id number] Sharif 04/16 04/17 Internal [place] /2016 [facility] [place] Outpatient [id number] 05/07 [facility] [place] [facility] Outpatient [id number] 05/07 05/08 [facility] [place] Outpatient [id number] 05/21 Active [facility] Outpatient [id number] 05/21 05/22 [facility] [place] Outpatient [id number] 08/19 [facility] [place] [facility] Outpatient [id number] 08/19 08/20 [facility] [place] [facility] Phone [id number] 08/21 08/23 [facility] [place] [facility] Phone [id number] 09/15 09/17 [facility] [place] Outpatient [id number] 10/09 [facility] [place] [facility] Outpatient [id number] Sharif 10/09 10/10 [facility] [place] [facility] [place] Out[facility] [id number] 01/15 [facility] [id number] Shar[place] 01/15 01/16 [facility] [place] [facility] [place] [facility] Phone [id number] 02/12 02/14 [facility] [place] Outpatient [id number] [place] 03/[address] [facility] Outpatient [id number] [place] 03/22 03/23 [facility] [place] Procedures Procedure Code Date Perfomer Comments Source Operation [id number] [facility] Assessment and Plan No Data Provided for This Section Plan of Care No Data Provided for This Section Social History Social History Date Source Social History TypeResponse 01/15/2018 [facility] Substance Abuse Use: None. Smoking Status Never smoker; Type: Cigars; Exposure to Tobacco Smoke None; Cigarette Smoking Last 365 Days No; Reg Smoking Cessation Counseling No1 entered on: 01/15/18 1pt is a non-smoker Social History TypeResponse 01/15/2018 [facility] Substance Abuse Use: None. Smoking Status Never [...]
--- OUTSIDE RECORDS SUMMARY | 2020-06-30 08:28 | XMS REPORT | Summary of Care ---
:1955 Author Organization [facility] Address [address] [place] [id number] Care Team Providers Name Role Phone Robert St Primary Care Provider Unavailable Reason for Visit Reason Comments Follow-up Obstructive Sleep Apnea Encounter Details Date Type Department Care Team Description 05/17/[address] [facility] ADC Sebastian Ferrerauc tidev sleep Pul[facility] MD Jf apnea on CPAP [address] [facility] [address], [address] (Primary Dx) [address] [place], [place] [id number] [phone] Allergies No Known Allergiesdocumented as of this encounter (statuses as of 05/17/2020) Medications Medication Sig Dispensed Refills Start Date End Date Status vit A/vit C/vit Take by mouth 0 Active E/zinc/copper daily. (PRESERVISION AREDS ORAL) nitroglycerin 0.[address] 1 tablet 1 Bottle 1 05/18/2019 Active sublingual tablet under the tongue every 5 (five) minutes as needed for Chest pain (if pain not relieved after 3 doses (15 min) go to an ER). psyllium husk Take by mouth. 0 Active (METAMUCIL ORAL) aspirin 81 mg chewable Take 1 tablet by 30 tablet 11 06/03/2019 Active tabletIndications: mouth daily. History of percutaneous coronary intervention amLODIPine 5 mg Take 1 tablet by 30 tablet 0 08/25/2019 Active tabletIndications: mouth every History of morning. percutaneous coronary intervention atorvastatin 80 mg Take 1 tablet by 30 tablet 3 08/26/2019 Active tabletIndications: mouth at History of bedtime. percutaneous coronary intervention LISINOPRIL 40 mg TAKE 1 TABLET BY 90 tablet 2 09/24/2019 Active tabletIndications: MOUTH EVERY DAY Essential hypertension IN THE MORNING TRIAMTERENE-HYDROCHLOR TAKE 1 CAPSULE 90 capsule 1 10/19/2019 Active OTHIAZIDE 37.5-25 mg BY MOUTH EVERY per capsule DAY IN THE MORNING VASCEPA 1 gram capsule TAKE 2 CAPSULES 360 capsule 2 0 Active BY MOUTH 2 (TWO) TIMES DAILY. ticagrelor 90 mg Take 1 tablet by 60 tablet 11 04/20/2020 Active tabletIndications: mouth 2 (two) History of times daily. percutaneous coronary intervention documented as of this encounter (statuses as of 05/17/2020) Active Problems Problem Noted Date Coronary artery disease involving [place] coronary maryanne ry of [place] heart 07/19/2019 without angina pectoris History of percutaneous coronary intervention 06/01/20 19 documented as of this encounter (statuses as of 05/17/2020) Social History Tobacco Use Types Packs/Day Years Used Date Former Smoker Smokeless Tobacco: Former User Alcohol Use Drinks/Week oz/Week Comments Yes social Education Answer Date Recorded What is the highest level of school you have High school gra duate 06/01/2019 completed or the highest degree you have received? Financial Resource Strain Answer Date Recorded How hard is it for you to pay for the very basics like Not h martin at all 06/01/2019 food, housing, medical care, and heating? Food Insecurity Answer Date Recorded Within the past 12 months, you worried that your food would Never true 06/01/2019 run out before you got money to buy more. Within the past 12 months, the food you bought just didn't N ever true 06/01/2019 last and you didn't have money to get more. Transportation Needs Answer Date Recorded In the past 12 months, has lack of transportation kept you f rom No 06/01/2019 medical appointments or from getting medications? In the past 12 months, has lack of transportation kept you f rom No 06/01/2019 meetings, work, or getting things needed for daily living? Sex Assigned at Date Recorded Not on file COVID-19 Exposure Response Date Recorded In the last month, have you been in contact with No / Unsure 05/17/2020 9:46 AM CANDY STARCH MOLD PRINTER someone who was confirmed or suspected to have Coronavirus / COVID-19? documented as of this encounter Last Filed Vital Signs Vital Sign Reading Time Taken Comments Blood Pressure 119/83 05/17/2020 10:17 AM CANDY STARCH MOLD PRINTER Pulse 81 05/17/2020 10:17 AM CANDY STARCH MOLD PRINTER Temperature - - Respiratory Rate 19 05/17/2020 10:17 AM CANDY STARCH MOLD PRINTER Oxygen Saturation 97% 05/17/2020 10:17 AM CANDY STARCH MOLD PRINTER Inhaled Oxygen Concentration - - Weight 108.9 kg (240 lb) 05/17/2020 10:17 AM CANDY STARCH MOLD PRINTER Height 190.5 cm (6' 3") 05/17/2020 10:17 AM CANDY STARCH MOLD PRINTER Body Mass Index 30 05/17/2020 10:17 AM CANDY STARCH MOLD PRINTER documented in this encounter Progress Notes Sebastian Ferrera MD - 05/17/2020 10:00 AM CSTReason for Clinic Visit: The patient is currently under Positive Airway Pressure (PAP) treatment for Obstructive Sleep Apnea (FEI). Chief Complaint: Obstructive Sleep Apnea History of Present Illness: The usual bed time is8:30-9:30p.m. and wake up time is 5a.m. The patient does take intentional naps during the day. The patient does not suffer from irresistible sleepattacks during the day. The patient does not experience sudden loss of muscle tone when emotional orexcited. The patient does not report vivid dream-like images and loss of muscle tone when falling asleep and upon awakening. [place] Sleepiness Scalescore:5(0-24). Social History: The patient does not smoke cigarettes. The patient occasionally drinks alcoholic beverages. Caffeinated beverages consumption: 1-2 per day. Family History:The family history is positive for snoring in blood relatives. Physical Examination: 1) Vital signs: as noted above. 2) General: the patient is pleasant, well developed, and in NAD. 3) Skin:there are no rashes, edema, or abnormal pigmentation. 4)Head:thereare no skull deformities or pathological facial asymmetry. 5)Eyes:pupils are equal, round, and reactive to light; extraocular movements are conjugate and unrestricted, without strabismus or nystagmus. 6)ENT:oropharynx reveals low set soft palate and elongated uvula; the patient displays a goodsniff through both the right and left nostril. 7)Neck:there are no distended veins or enlarged lymph nodes. 8)Back:straight, spine - without pathological curvatures. 9)Bilateral lower extremitiesare without edema. 10)Neurological- patient is alert, oriented and answers questions appropriately. Review of Systems: 1)Respiratory:positive for snoring and witnessed apneas; 2)Cardiovascular:positive for hypertension; 3)Endocrine/Metabolic:positive for dyslipidemia; 4)Digestive:negative for abnormalities; 5)Urinary:positive for nocturia; 6)Skeletal:no skeletal abnormalities detected; 7)Muscular:negative for muscular abnormalities; 8)Nervous:positive for hypersomnia; 9)Integumentary:no visible orreported skin or hair abnormalities; 10)Reproductive:no reproductive abnormalities noted; 11)Immune /Lymphatic/Allergy:positive for respiratory allergies. Sleep Study Results and PAP Compliance: The HSTon 11/25/18revealed respiratory disturbance index of 37.8events per hour of total sleep (normal <5/hr) with a minimum oxygen saturation by pulse oximetry of 84%. The patient had Positive Airway Pressure (PAP) titration on 01/25/19. On the therapeutic night, PAP was titrated to a pressure of 12 cm H2O which was effective in normalizing patient's breathing during sleep. The patient reports increased daytime alertness while using the machine on an average of 4 hours 48 minutes during sleep at home (27% of the nights for >4 hours). The patient tolerates the PAP mask well. No side effects of PAP treatment are reported. Impression: The patient is benefiting from PAP treatment and needs to continue regular PAP use. Diagnosis: Obstructive Sleep Apnea Syndrome clinically well controlled by CPAP treatment G47.33 Recommendations and Patient Education: The condition of Obstructive Sleep Apnea was discussed with the patient and the possible consequences of untreated sleep apnea regarding quality of sleep, daytime alertness, and cardiovascular complications were underlined. All of patients questions were welcomed and thoroughly answered. The patient was encouraged to continue regular PAP treatment at home at 12 cm H2O. Additional time was spent discussing sleep hygiene including: regular bedtime and wake-up times; enough sleep hours; going to bed only when sleepy; using bed for the sole purpose of sleeping; avoidanceof: 1) caffeinated and alcoholic beverages, 2) strenuous cognitive activity, or 3) heavy meals in the evening. The patient reported efforts to implement these sleep hygiene measures at home and had some additional questions which were answered in detail. A follow up visit as needed was also recommended. The patient was instructed to contact us in case of any further questions, concerns, problems, or side effects of PAP treatment. Y STARCH MOLD PRINTER documented in this encounter Plan of Treatment Date Type Specialty Care Team Description 07/19/2020 Office Visit Cardiology Clint Soto M D [address] [address] [phone] 08/11/2020 Office Visit Pulmonary Disease Bobby Trevino, [address] [place] [address] Health Maintenance Due Date Last Done Comments HEPATITIS C (HCV) SCREEN 1955 DTaP,Tdap,and Td Vaccines (1 - 01/17/1975 Tdap) COLON CANCER SCREENING ANNUAL 01/17/2006 FIT/FOBT COLON CANCER SCREENING FIT DNA 01/17/2006 EVERY 3 YEARS COLON CANCER SCREENING 01/17/2006 SIGMOIDOSCOPY EVERY 5 YEARS COLONOSCOPY 01/17/2006 Colorectal Cancer Screening 01/17/2006 Zoster Recombinant Vaccine 01/17/2006 (SHINGRIX) (1 of 2) LUNG CANCER SCREEN: Recommended 01/17/2011 for age 55-80 with 30 + pack year history INFLUENZA VACCINE (#1) 2020 Depression Screening 07/19/2020 07/19/2019 PNEUMOCOCCAL 0-64 YEARS COMBINED Aged Out No longer eligible based on SERIES patient's age to complete this topic documented as of this encounter Implants Implanted Type Area [place] Device Identifier Shelf Exp iration Model / Serial Date / Lot Plate PLATE Arm documented as of this encounter Results Not on filedocumented in this encounter Visit Diagnoses Diagnosis Obstructive sleep apnea on CPAP - Primar y Obstructive sleep apnea (adult) (pediatr ic) documented in this encounter Insurance Payer Benefit Plan Subscriber ID Effective Dates Phone Address Type / Group BCBS OF [facility] [id number] 2018-Bianca [phone] [address] PPO/POS [place] t [id number] [place] [address] documented as of this encounter
--- OUTSIDE RECORDS SUMMARY | 2020-06-30 08:28 | XMS REPORT | Summary of Care ---
:1955 Author Organization [facility] Address [address] [place] [address] Care Team Providers Name Role Phone Robert St Primary Care Provider Unavailable Reason for Visit Reason Comments Follow-up Obstructive Sleep Apnea Encounter Details Date Type Department Care Team Description 05/17/2020 Office Visit [facility] ADC Sebastian Ferrerauc tidev sleep Pulmonary Clinic MD Jf apnea on CPAP [address] [facility] [address]rika, [address] [facility] [address] (Primary Dx) [address] [place], [place] [phone] [phone] Allergies No Known Allergiesdocumented as of this [...] Problem Noted Date Coronary artery disease involving [place] coronary maryanne ry of [place] heart 07/19/2019 without angina pectoris History of [...] with No / Unsure 05/17/2020 9:46 AM LIFE MANAGEMENT TEACHER someone who was confirmed or suspected to have Coronavirus / COVID-19? documented as of this encounter Last Filed Vital Signs Vital Sign Reading Time Taken Comments Blood Pressure 119/83 05/17/2020 10:17 AM LIFE MANAGEMENT TEACHER Pulse 81 05/17/2020 10:17 AM LIFE MANAGEMENT TEACHER Temperature - - Respiratory Rate 19 05/17/2020 10:17 AM LIFE MANAGEMENT TEACHER Oxygen Saturation 97% 05/17/2020 10:17 AM LIFE MANAGEMENT TEACHER Inhaled Oxygen Concentration - - Weight 108.9 kg (240 lb) 05/17/2020 10:17 AM LIFE MANAGEMENT TEACHER Height 190.5 cm (6' 3") 05/17/2020 10:17 AM LIFE MANAGEMENT TEACHER Body Mass Index 30 05/17/2020 10:17 AM LIFE MANAGEMENT TEACHER documented in this encounter Progress Notes Sebastian [...] tone when falling asleep and upon awakening. [place] Sleepiness Scalescore:5(0-24). Social History: The patient does [...] problems, or side effects of PAP treatment. MANAGEMENT TEACHER documented in this encounter Plan of Treatment Date Type Specialty Care Team Description 07/19/2020 Office Visit Cardiology Clint Soto M D [address] [address] [phone] 08/11/2020 Office Visit Pulmonary Disease Bobby Trevino, [address] [place] [address] Health Maintenance Due Date Last [...] of this encounter Implants Implanted Type Area Business Development Sales Executive Device Identifier Shelf Exp iration Model / [...] Group BCBS OF [facility] [id number] 2018-Bianca [phone] [address] PPO/POS [place] t [id number] [place] [address] documented as of this encounter
--- OUTSIDE RECORDS SUMMARY | 2020-06-30 08:28 | XMS REPORT | Continuity of Care Document ---
:[address] [facility] t Address [address] [place] [address] Care Team Providers Name Role Phone Charles MEYER Attending Clinician Doctor Unassigned, Name Attending Clinician Unavailable Iban MEYER, T Attending Clinician Naveed Vazquez Attending Clinician Bhavik Kinney Attending Clinician Problems Condition Condition Condition Status Onset Resolution Last Treating Co mments Source Name Details Category Date Date Treatment Clinician Date Benign Problem Active 2020-03-25 Memor ia hypertensi 00:49:08 l on Benign Jhon (disorder) hypertensi on (disorder) Active Problem 03/25/2020 Data migrated from [facility] on 10/29/14. [facility] her Neuro Carpal Problem Active 2020-03-25 Memor ia tunnel 00:49:08 l syndrome Carpal Ion n (disorder) tunnel syndrome (disorder) Active Problem 03/25/2020 [facility] Hyperchole Problem Active 2020-03-25 M emoria sterolemia 00:49:08 l (disorder) Ion n Hyperchole sterolemia (disorder) Active Problem 03/25/2020 Data migrated from [place] on 10/29/14. [facility],Misc her Neuro HYPERCHOLE Condition Active 2014-09-13 Memoria STEROLEMIA 08:30:42 l Jhon HYPERCHOLE STEROLEMIA Active Condition 09/13/2014 Medical Group HTN Condition Active 2014-09-13 Mem oria 08:30:42 l HTN [place] Active Condition 09/13/2014 [facility] Group Allergies, Adverse Reactions, Alerts Allergy Allergy Status Severity Reaction(s) Onset Inactive Treating Comm ents Source Name Type Date Date Clinician penicill penicill Active Memori a ins<sup> ins<sup> 2-21 l 1</sup> 1</sup> 06:00: [place] 00 PCN PCN Active Memoria 2-21 l 00:00: [place] 00 Social History Social Habit Start Date Stop Date Quantity Comments Source Social History 2018-01-15 2018-01-15 [facility] 14:10:21 14:10:21 Medications Ordered Filled Start Stop Current Ordering Indication Dosage Frequency Signature Comments Components Source Medication Medication Date Date Medication? Clinician (SIG) Name Name lisinopril Yes See Memoria 20 mg oral 9-13 Instructio l tablet 19:03: ns, # 30 Jhon 00 tab, Refill(s) 6, TAKE 1 TABLET BY MOUTH EVERY DAY, Pharmacy: [id number] lisinopril No 1 tablet, Me moria 20 mg oral 8-16 PO, Daily, l tablet 21:10: 0 Jhon 00 Refill(s) amLODIPine Yes See Memoria 10 mg oral 8-16 Instructio l tablet 14:55: ns, TAKE 1 Terri nn 54 TABLET BY MOUTH EVERY DAY, # 90 tab, 3 Refill(s), Pharmacy: [id number] simvastatin 2017- Yes See Memori a 40 mg oral 8-16 Instructio l tablet 14:55: ns, TAKE 1 Terri nn 51 TABLET BY MOUTH AT BEDTIME, # 90 tab, 3 Refill(s), Pharmacy: [id number] lisinopril 2017- No See Memoria 10 mg oral 8-16 Instructio l tablet 14:50: ns, TAKE 2 Terri nn 20 TABLET BY MOUTH EVERY DAY, # 180 tab, 3 Refill(s), Pharmacy: [id number] lisinopril Yes See Memoria 10 mg oral 5-10 Instructio l tablet 14:46: ns, TAKE 2 Terri nn 20 TABLET BY MOUTH EVERY DAY, # 180 tab, 3 Refill(s), [facility]: [id number] simvastatin Yes See Memori a 40 mg oral 4-17 Instructio l tablet 21:14: ns, # 90 [place] 49 tab, Refill(s) 3, TAKE 1 TABLET BY MOUTH AT BEDTIME, Pharmacy: [id number] triamcinolo No 40 mg, Darrell adi ne 3-20 Route: IM, l ACETONIDE 19:59: ONCE, Jhon 40 mg/mL 00 Dosing injectable Weight suspension 105.057, kg, (KENALOG), Start date: 08/19/17 14:59:00 CDT, Stop date: 08/19/17 14:59:00 CDT benzonatate No 100 mg = 1 Memoria 100 mg oral 3-20 cap, PO, l capsule 19:58: TID, do Jhon 00 not crush or chew, X 10 day, # 30 cap, 0 Refill(s), Pharmacy: [id number] Levofloxaci No 500 mg = 1 Memoria n 500 MG 3-20 tab, PO, l Oral Tablet 19:58: Q24H, X 7 H ermann [Levaquin] 00 day, # 7 tab, 0 Refill(s), Pharmacy: [id number] sucralfate 2016-06 Yes 1 gm = 1 Mem oria 1 g oral 2-06 tab, PO, l tablet 17:10: Before Jhon 00 Meals & Bedtime, # 120 tab, 1 Refill(s), Pharmacy: [id number] omeprazole 2016-06 Yes 20 mg = 1 Me moria 20 mg oral 2-06 tab, PO, l enteric 17:10: QAM, # 30 Terri nn coated 00 tab, 2 tablet Refill(s), Pharmacy: [facility] #[id number] Ascorbic 2016-06 Yes 1 tab, PO, Mem oria Acid 113 MG 2-06 Daily, 0 l / Beta 16:27: Refill(s) Ion n Carotene 00 7160 MG / cuprous oxide 0.4 MG / dl-alpha tocopheryl acetate 100 UNT / Zinc Oxide 17.4 MG Oral Tablet [PreserVisi on] AMLODIPINE Yes 1 po qam Mem oria BESYLATE 5 4-14 l MG TABS 00:00: [place] 00 LISINOPRIL- Yes 1 po qd Mem oria HYDROCHLORO 2-21 l THIAZIDE 00:00: [place] 10-12.5 MG 00 TABS LISINOPRIL- Yes 1 po qd Mem oria HYDROCHLORO 2-21 l THIAZIDE 00:00: Jhon 10-12.5 MG 00 TABS SIMVASTATIN Yes 1 po qd Mem oria 20 MG TABS 8-09 l 00:00: [place] 00 SIMVASTATIN Yes 1 po qd Mem oria 20 MG TABS 8-09 l 00:00: Jhon 00 Vital Signs Vital Name Observation Time Observation Value Comments Source Weight 2018-01-15 14:09:00 [facility] [place] BMI Calculated 2018-01-15 14:09:00 Marisolori al Jhon Height 2018-01-15 14:09:00 190.5 cm [facility] Heart Rate 2018-01-15 14:09:00 [facility] [place] Systolic (mm Hg) 2018-01-15 14:09:00 Darrell rial [place] Diastolic (mm Hg) 2018-01-15 14:09:00 Mem o[facility] [place] Weight 2017-10-09 14:28:00 [facility] Jhon BMI Calculated 2017-10-09 14:28:00 [facility]ori al [place] Heart Rate 2017-10-09 14:28:00 [facility] Height 2017-10-09 14:28:00 190.5 cm [facility] [place] Systolic (mm Hg) 2017-10-09 14:28:00 Darrell rial Jhon Diastolic (mm Hg) 2017-10-09 14:28:00 Mem o[facility] [place] Weight 2017-08-19 19:05:00 [facility] [place] Heart Rate 2017-08-19 19:05:00 [facility] [place] Respitory Rate 2017-08-19 19:05:00 Memori al [place] Systolic (mm Hg) 2017-08-19 19:05:00 Darrell rial Jhon Diastolic (mm Hg) 2017-08-19 19:05:00 Mem o[facility] [place] Weight 2017-05-21 16:00:00 [facility] [place] Heart Rate 2017-05-21 16:00:00 [facility] [place] Respitory Rate 2017-05-21 16:00:00 Memori al [place] Systolic (mm Hg) 2017-05-21 16:00:00 Darrell rial [place] Diastolic (mm Hg) 2017-05-21 16:00:00 Mem orial [place] BMI Calculated 2017-05-07 16:23:00 [facility]ori al [place] Weight 2017-05-07 16:23:00 [facility] [place] Systolic (mm Hg) 2017-05-07 16:23:00 Darrell rial [place] Diastolic (mm Hg) 2017-05-07 16:23:00 Mem orial [place] Height 2017-05-07 16:23:00 190.5 cm [facility] Respitory Rate 2017-05-07 16:23:00 [facility]ori al [place] Heart Rate 2017-05-07 16:23:00 [facility] Weight 2017-04-16 14:13:00 [facility] BMI Calculated 2017-04-16 14:13:00 [facility] al [place] Height 2017-04-16 14:13:00 190.5 cm [facility] [place] Systolic (mm Hg) 2017-04-16 14:13:00 Darrell rial [place] Diastolic (mm Hg) 2017-04-16 14:13:00 Mem orial [place] Heart Rate 2017-04-16 14:13:00 [facility] [place] Weight 2014-09-13 13:30:42 [facility] Temperature Oral (F) 2014-09-13 13:30:42 97 F [facility] Heart Rate 2014-09-13 13:30:42 [facility] [place] Systolic (mm Hg) 2014-09-13 13:30:42 Darrell rial Jhon Diastolic (mm Hg) 2014-09-13 13:30:42 Mem orial [place] Weight 2014-03-15 13:32:21 [facility] [place] Temperature Oral (F) 2014-03-15 13:32:21 97 F [facility] [place] Heart Rate 2014-03-15 13:32:21 [facility] [place] Systolic (mm Hg) 2014-03-15 13:32:21 Darrell rial Jhon Diastolic (mm Hg) 2014-03-15 13:32:21 Mem orial [place] Weight 2013-07-23 20:43:52 [facility] [place] Temperature Oral (F) 2013-07-23 20:43:52 98 F [facility] [place] Heart Rate 2013-07-23 20:43:52 [facility] Systolic (mm Hg) 2013-07-23 20:43:52 Darrell rial Jhon Diastolic (mm Hg) 2013-07-23 20:43:52 Mem orial [place] Weight 2013-01-21 18:57:51 [facility] Heart Rate 2013-01-21 18:57:51 [facility] Systolic (mm Hg) 2013-01-21 18:57:51 Darrell rial [place] Diastolic (mm Hg) 2013-01-21 18:57:51 Mem orial [place] Weight 2012-07-23 20:49:52 [facility] Heart Rate 2012-07-23 20:49:52 [facility] Systolic (mm Hg) 2012-07-23 20:49:52 Darrell rial [place] Diastolic (mm Hg) 2012-07-23 20:49:52 Mem orial [place]hon Height 2012-01-09 19:49:01 [facility] [place] Weight 2012-01-09 19:49:01 [facility] Heart Rate 2012-01-09 19:49:01 [facility] [place] Systolic (mm Hg) 2012-01-09 19:49:01 Darrell rial [place] Diastolic (mm Hg) 2012-01-09 19:49:01 Mem orial Jhon Procedures Procedure Date / Time Performed Performing Clinician [facility] e Operation [facility] [place] Encounters Start End Encounter Admission Attending Care Care Encounter Source Date/Time Date/Time Type Type Clinicians Facility Department ID 2020-06-08 2020-06-08 Outpatient [facility]LMLC [facility] [id number] [facility] St 00:00:00 00:00:00 [facility] 2020-06-07 2020-06-07 Telephone Charles, [facility] [[email or web address]] [id number] 00:00:00 00:00:00 Clint Harkins [id number] Erki [id number] Karen [id number] [facility]9 [facility] 2020-06-07 2020-06-07 Orders Doctor GUERRA [id number] 00:00:00 00:00:00 Only Unassigned, KIP [id number] [facility] [id number] 2020-06-05 2020-06-05 Outpatient [facility] [id number] [facility] 2020-05-30 2020-05-30 Telephone Charles [facility] [[email or web address]] [id number] 00:00:00 00:00:00 Clint Harkins [id number] [place] [id number] Professio [phone] nal 059 [facility] 2020-05-17 2020-05-17 Office Iban [facility] [[email or web address]] [id number] 09:49:07 10:19:07 Visit Sebastian Harkins [id number] [place] [id number] Professio [phone] nal 085 [facility] 2020-03-28 2020-03-28 Outpatient [facility] [id number] [facility] 2020-03-22 2020-03-[address] [facility] [id number] 08:15:00 23:59:59 Maxwell Hook Naveed 2020-03-21 2020-03-21 Outpatient [facility] [id number] [facility] 2020-03-08 2020-03-08 Outpatient [facility] [id number] [facility] 2020-02-29 2020-02-29 Outpatient [facility] [id number] [facility] 2018-02-12 2018-02-13 Outpatient [facility] [id number] 09:32:00 23:59:59 03 2018-01-15 2018-01-15 Outpatient Gregoria [facility] [id number] 09:15:00 23:59:59 Sharif Gutierres 2017-10-09 2017-10-09 Outpatient TONI Kinney [facility] [id number] 09:30:00 23:59:59 Sharif Gutierres 2017-10-09 2017-10-09 Outpatient TONI Kinney [facility] [id number] 09:30:00 23:59:59 Sharif Gutierres 2017-09-15 2017-09-16 Outpatient MG MG [id number] 14:55:00 23:59:59 02 2017-08-21 2017-08-22 Outpatient MG MG [id number] 13:57:00 23:59:59 01 2017-08-19 2017-08-19 Outpatient MG [facility] [id number] 14:00:00 23:59:59 11 2017-05-21 2017-05-21 Outpatient MG MG [id number] 10:00:00 23:59:59 10 2017-05-07 2017-05-07 Outpatient MG MG [id number] 10:15:00 23:59:59 09 2017-04-16 2017-04-16 Outpatient Gregoria [facility] [id number] 08:30:00 23:59:59 Sharif Gutierres Results Test Description Test Time Test Comments Results Result Comments Source Chemistry 2014-09-06 138 [facility] 13:27:00 Chemistry 2014-09-06 4.4 [facility] 13:27:00 Chemistry 2014-09-06 4.4 [facility] 13:27:00 Chemistry 2014-09-06 9.4 [facility] 13:27:00 Chemistry 2014-09-06 0.82 [facility] 13:27:00 Chemistry 2014-09-06 17 [facility] 13:27:00 Chemistry 2014-09-06 86 [facility] 13:27:00 Chemistry 2014-09-06 22 [facility] 13:27:00 Chemistry 2014-09-06 17 [facility] 13:27:00 Chemistry 2014-09-06 228 [facility] 13:27:00 Chemistry 2014-09-06 51 [facility] 13:27:00 Chemistry 2014-09-06 132 [facility] 13:27:00 Hematology 2014-09-06 14.3 [facility] 13:27:00 Hematology 2014-09-06 42.9 [facility] 13:27:00 Chemistry 2014-03-14 140 [facility] 13:05:00 Chemistry 2014-03-14 4.4 [facility] 13:05:00 Chemistry 2014-03-14 140 [facility] 13:05:00 Chemistry 2014-03-14 4.4 [facility] 13:05:00 Chemistry 2014-03-14 4.3 [facility] [place] [facility] 13:05:00 Chemistry 2014-03-14 9.4 [facility] 13:05:00 Chemistry 2014-03-14 0.73 [facility] [place] 13:05:00 Chemistry 2014-03-14 15 [facility] nn 13:05:00 Chemistry 2014-03-14 80 [facility] 13:05:00 Chemistry 2014-03-14 27 [facility] 13:05:00 Chemistry 2014-03-14 29 [facility] 13:05:00 Chemistry 2014-03-14 259 [facility] 13:05:00 Chemistry 2014-03-14 49 [facility] 13:05:00 Chemistry 2014-03-14 145 [facility] 13:05:00 Chemistry 2014-03-14 1.16 [facility] [place] [facility] 13:05:00 Chemistry 2014-03-14 1.48 [facility] 13:05:00 Chemistry 2013-01-14 1.31 [facility] [place] [facility] 14:19:20 Chemistry 2013-01-14 1.31 [facility] 14:19:20 Chemistry 2010-10-11 3.02 [facility] 20:29:55 Chemistry 2010-10-11 3.02 [facility] 20:29:55 Chemistry 2004-10-02 1.2 [facility] 19:04:19 Chemistry 2004-10-02 1.2 [facility] 19:04:19
--- OUTSIDE RECORDS SUMMARY | 2020-06-30 08:28 | XMS REPORT | Summary of Care ---
:1955 Author Organization [facility] Address [address] [place] [address] Care Team Providers Name Role Phone Robert St Primary Care Provider Unavailable Reason for Visit Reason Comments Refill Request Encounter Details Date Type Department Care Team Description 04/20/2020 Refill [facility] Cardiology- Nika Soto MD Refill Request [address] [facility], [address] [place] [address] [place] [address] [phone] Allergies No Known Allergiesdocumented as of this encounter (statuses as of 04/20/2020) Medications Medication Sig Dispensed Refills Start Date End Date Status vit A/vit C/vit Take by 0 Acti ve E/zinc/copper mouth daily. (PRESERVISION AREDS ORAL) nitroglycerin 0.4 Place 1 1 Bottle 1 05/18/2019 A ctive mg sublingual tablet under tablet the tongue every 5 (five) minutes as needed for Chest pain (if pain not relieved after 3 doses (15 min) go to an ER). psyllium husk Take by 0 Active (METAMUCIL ORAL) mouth. aspirin 81 mg Take 1 tablet 30 tablet 11 06/03/2019 A ctive chewable by mouth tabletIndications: daily. History of percutaneous coronary intervention amLODIPine 5 mg Take 1 tablet 30 tablet 0 08/25/2019 Active tabletIndications: by mouth History of every percutaneous morning. coronary intervention atorvastatin 80 mg Take 1 tablet 30 tablet 3 08/26/2019 Active tabletIndications: by mouth at History of bedtime. percutaneous coronary intervention LISINOPRIL 40 mg TAKE 1 TABLET 90 tablet 2 09/24/2019 Active tabletIndications: BY MOUTH Essential EVERY DAY IN hypertension THE MORNING TRIAMTERENE-HYDROC TAKE 1 90 capsule 1 10/19/2019 Active HLOROTHIAZIDE CAPSULE BY 37.5-25 mg per MOUTH EVERY capsule DAY IN THE MORNING VASCEPA 1 gram TAKE 2 360 capsule 2 03/15/2020 Ac tive capsule CAPSULES BY MOUTH 2 (TWO) TIMES DAILY. ticagrelor 90 mg Take 1 tablet 60 tablet 11 04/20/2020 Active tabletIndications: by mouth 2 History of (two) times percutaneous daily. coronary intervention ticagrelor 90 mg Take 1 tablet 60 tablet 11 06/02/2019 04/20/20 Discontinued tabletIndications: by mouth 2 20 (Reorder) History of (two) times percutaneous daily. coronary intervention documented as of this encounter (statuses as of 04/20/2020) Active Problems Problem Noted Date Coronary artery disease involving [place] coronary maryanne ry of [place] heart 07/19/2019 without angina pectoris History of percutaneous coronary intervention 06/01/20 19 documented as of this encounter (statuses as of 04/20/2020) Social History Tobacco Use Types Packs/Day Years Used Date Former Smoker Smokeless Tobacco: Former User Alcohol Use Drinks/Week oz/Week Comments Yes social Education Answer Date Recorded What is the highest level of school you have High school gra dujennifer 06/01/2019 completed or the highest degree you [...] Assigned at Date Recorded Not on file documented as of this encounter Last Filed Vital Signs Not on filedocumented in this encounter Plan of Treatment Date Type Specialty Care Team Description 05/17/2020 Office Visit Pulmonary Disease Giulia Ferrera MD [address] [facility] [address] [place], [place] [address] 07/19/2020 Office Visit Cardiology Clint Soto M D [address] [facility] [address] [place], [place] [address] 08/11/2020 Office Visit Pulmonary Disease Norma Trevinomartinwhitney, [facility] [place] [address] Health Maintenance Due Date Last [...] of this encounter Implants Implanted Type Area Hydraulic Dredge Operator Device Identifier Shelf Exp iration Model / Serial Date / Lot Plate PLATE Arm documented as of this encounter Results Not on filedocumented in this encounter Visit Diagnoses Diagnosis History of percutaneous coronary interve ntion Personal history of surgery to heart and great vessels, presenting hazards to health documented in this encounter Insurance Payer Benefit Plan Subscriber ID Effective Dates Phone Address Type / Group BCBS OF [facility] [id number] 2018-Bianca [phone] [address] [place] PPO/POS [place] t 7 [id number] [place] [address] documented as of this encounter
--- OUTSIDE RECORDS SUMMARY | 2020-06-30 08:29 | XMS REPORT | Summary of Care ---
:1955 Author Organization [facility] Address [address] [place] [address] Care Team Providers Name Role Phone Robert St Primary Care Provider Unavailable Reason for Visit Reason Comments Pre-op Clearance [facility] Encounter Details Date Type Department Care Team Description 06/07/2020 Telephone [facility] Clint Soto M D Pre-op Clearance ([facility]- [address] [facility]) [address] [place], [place] [id number] [phone] Allergies No Known Allergiesdocumented as of this encounter (statuses as of 06/07/2020) Medications Medication Sig Dispensed Refills Start Date [...] ticagrelor 90 mg Take 1 tablet by 180 tablet 3 06/01/2020 Active tabletIndications: mouth 2 (two) History of times daily. percutaneous coronary intervention documented as of this encounter (statuses as of 06/07/2020) Active Problems Problem Noted Date Coronary artery disease involving [place] coronary maryanne ry of [place] heart 07/19/2019 without angina pectoris History of percutaneous coronary intervention 06/01/20 19 documented as of this encounter (statuses as of 06/07/2020) Immunizations Name Administration Dates Next Due Influenza Virus Vaccine 04/21/2019 Influenza Virus Vaccine Quad IM 3+ YRS 01/24/2020 documented as of this encounter Social History Tobacco Use Types Packs/Day Years [...] with No / Unsure 05/17/2020 9:46 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 documented as of this encounter Last Filed Vital Signs Not on filedocumented in this encounter Miscellaneous Notes Telephone Encounter - Akash Kline MA - 06/07/2020 11:29 AM CSTDr. Charles received clearance form from Dr. Gerard. Completed faxed back , confirmation received. Will scan into [employer]. documented in this encounter Plan of Treatment Date Type Specialty Care Team Description 07/19/2020 Office Visit Cardiology Clint Soto M D [address] [place] [address] 08/11/2020 Office Visit Pulmonary Disease Bobby Trevino, [address] [place] [phone] 05/16/2021 Office Visit Pulmonary Disease Giulia Ferrera MD [address] [facility] 106 [place], [place] [address] Health Maintenance Due Date Last Done Comments HEPATITIS C (HCV) SCREEN 1955 DTaP,Tdap,and Td Vaccines (1 - 01/17/1975 Tdap) COLON CANCER SCREENING ANNUAL 01/17/2006 FIT/FOBT COLON CANCER SCREENING FIT DNA 01/17/2006 EVERY 3 YEARS COLON CANCER SCREENING 01/17/2006 SIGMOIDOSCOPY EVERY 5 YEARS COLONOSCOPY 01/17/2006 Colorectal Cancer Screening 01/17/2006 Zoster Recombinant Vaccine 01/17/2006 (SHINGRIX) (1 of 2) LUNG CANCER SCREEN: 01/17/2011 Recommended for age 55-80 with 30 + pack year history Depression Screening 05/17/2021 05/17/2020 INFLUENZA VACCINE Completed 01/24/2020, 04/21/2019 PNEUMOCOCCAL 0-64 YEARS Aged Out No longe r eligible based COMBINED SERIES on patient's age to complete this to pic documented as of this encounter Implants Implanted Type Area Kick Press Setter Device Identifier Shelf Exp iration Model / Serial Date / Lot Plate PLATE Arm documented as of this encounter Results Not on filedocumented in this encounter Insurance Payer Benefit Plan Subscriber ID Effective Dates Phone Address Type / Group BCBS OF [facility] [id number] 2018-Bianca [phone] [address] PPO/POS [place] t 7 [id number] [place] [address] documented as of this encounter
--- OUTSIDE RECORDS SUMMARY | 2020-06-30 08:29 | XMS REPORT | Summary of Care ---
:1955 Author Organization [facility] Address [address] [place] [address] Care Team Providers Name Role Phone Robert St Primary Care Provider Unavailable Reason for Visit Reason Comments Follow-up Obstructive Sleep Apnea Encounter Details Date Type Department Care Team Description 05/17/2020 Office Visit [facility] Sebastian Ferrerauc [facility] MD Jf apnea on CPAP [address] [facility] [address]Erika, [address] [facility] [address] (Primary Dx) [address] [place], [place] [id number] [phone] Allergies No Known Allergiesdocumented as of this [...] Problem Noted Date Coronary artery disease involving [place] coronary maryanne ry of [place] heart 07/19/2019 without angina pectoris History of [...] with No / Unsure 05/17/2020 9:46 AM CHAIR TRIMMER someone who was confirmed or suspected to have Coronavirus / COVID-19? documented as of this encounter Last Filed Vital Signs Vital Sign Reading Time Taken Comments Blood Pressure 119/83 05/17/2020 10:17 AM CHAIR TRIMMER Pulse 81 05/17/2020 10:17 AM CHAIR TRIMMER Temperature - - Respiratory Rate 19 05/17/2020 10:17 AM CHAIR TRIMMER Oxygen Saturation 97% 05/17/2020 10:17 AM CHAIR TRIMMER Inhaled Oxygen Concentration - - Weight 108.9 kg (240 lb) 05/17/2020 10:17 AM CHAIR TRIMMER Height 190.5 cm (6' 3") 05/17/2020 10:17 AM CHAIR TRIMMER Body Mass Index 30 05/17/2020 10:17 AM CHAIR TRIMMER documented in this encounter Progress Notes Sebastian Ferrera MD - 05/17/2020 10:00 AM CSTReason for Clinic Visit: The patient is currently under Positive Airway Pressure (PAP) treatment for Obstructive Sleep Apnea (FEI). Chief Complaint: Obstructive Sleep Apnea History of Present Illness: The usual bed time is8-9p.m. and wake up time is 5:30-6a.m. The patient does take occasional naps during the day. The patient does not suffer from irresistible sleep attacks during the day. The patient does not experience sudden loss of muscle tone when emotional or excited. The patient does not report vivid dream-like images and loss of muscle tone when falling asleep and upon awakening. [place] Sleepiness Scalescore:5(0-24). Social History: The patient does [...] problems, or side effects of PAP treatment. R TRIMMER documented in this encounter Plan of Treatment Date Type Specialty Care Team Description 07/19/2020 Office Visit Cardiology Clint Soto M D [address] [facility] [address] [place], [place] [address] 08/11/2020 Office Visit Pulmonary Disease Bobby Trevino, [address] [place] [address] Health Maintenance Due Date Last [...] history INFLUENZA VACCINE (#1) 2020 Depression Screening 05/17/2021 05/17/2020 PNEUMOCOCCAL 0-64 YEARS COMBINED Aged Out No longer eligible based on SERIES patient's age to complete this topic documented as of this encounter Implants Implanted Type Area Lead Esthetician Device Identifier Shelf Exp iration Model / Serial Date / Lot Plate PLATE Arm documented as of this encounter Results Not on filedocumented in this encounter Visit Diagnoses Diagnosis Obstructive sleep apnea on CPAP - Primar y Obstructive sleep apnea (adult) (pediatr ic) documented in this encounter Insurance Payer Benefit Plan Subscriber ID Effective Dates Phone Address Type / Group BCBS OF [facility] [id number] 2018-Bianca [phone] [address] PPO/POS [place] t [id number] [place] [address] documented as of this encounter
--- OUTSIDE RECORDS SUMMARY | 2020-06-30 08:29 | XMS REPORT | Summary of Care ---
:1955 Author Organization [facility] - [facility] Address [address] [place] [address] Care Team Providers Name Role Phone Rboert St Primary Care Provider Unavailable Encounter Details Date Type Department Care Team Description 06/07/2020 Orders Only [facility] Doctor Unassigned, No [address] [facility] [place] [address] [address] [place] [address] Allergies No Known Allergiesdocumented as of this encounter (statuses as of 06/08/2020) Medications Medication Sig Dispensed Refills Start Date [...] as of this encounter (statuses as of 06/08/2020) Active Problems Problem Noted Date Coronary artery disease involving [place] ir[place] coronary maryanne ry of [place] heart 07/19/2019 without angina pectoris History of percutaneous coronary intervention 06/01/20 19 documented as of this encounter (statuses as of 06/08/2020) Immunizations Name Administration Dates Next Due Influenza Virus Vaccine 04/21/2019 Influenza Virus Vaccine Quad IM 3+ YRS 01/24/2020 documented as of this encounter Social History Tobacco Use Types Packs/Day Years Used Date Former Smoker Smokeless Tobacco: Former User Alcohol Use Drinks/Week oz/Week Comments Yes social Education Answer Date Recorded What is the highest level of school you have High school gra caleb 06/01/2019 completed or the highest degree you [...] with No / Unsure 05/17/2020 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 documented as of this encounter Last Filed Vital Signs Not on filedocumented in this encounter Plan of Treatment Date Type Specialty Care Team Description 07/19/2020 Office Visit Cardiology Clint Soto M D [address] [facility] [address] [place], [place] [address] 08/11/2020 Office Visit Pulmonary Disease Bobby Trevino DO [address] [place] [phone] 05/16/2021 Office Visit Pulmonary Disease Giulia Ferrera MD [address] [facility] [address] r [address] [place], [place] [address] Health Maintenance Due Date [...] on patient's age to complete this to [facility] documented as of this encounter Implants Implanted Type Area Avionics System Engineer Device Identifier Shelf Exp iration Model / Serial Date / Lot Plate PLATE Arm documented as of this encounter Procedures Procedure Name Priority Date/Time Associated Diagnosis Comme nts MEDICAL Routine 06/07/2020 12:01 AM 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
--- OUTSIDE RECORDS SUMMARY | 2020-06-30 08:29 | XMS REPORT | Summary of Care ---
:1955 Author Organization [facility] Address [address] [place] [address] Care Team Providers Name Role Phone Robert St Primary Care Provider Unavailable Reason for Visit Reason Comments Rx Concern/Question ticagrelor 90 mg Encounter Details Date Type Department Care Team Description 05/30/2020 Telephone [facility] Clint Soto M D Rx Concern/Question Cardiology- [address] (ticagrelor 90 mg) [address] [place] [address] [address], [address] [place], [place] [address] [phone] Allergies No Known Allergiesdocumented as of this encounter (statuses as of 06/01/2020) Medications Medication Sig Dispensed Refills Start Date End Date Status vit A/vit C/vit Take by mouth 0 Active E/zinc/copper daily. (PRESERVISION AREDS ORAL) nitroglycerin 0.4 Place 1 tablet 1 Bottle 1 05/18/2019 Active mg sublingual under the tablet tongue every 5 (five) minutes as needed [...] tablet 0 08/25/2019 Active tabletIndications: by mouth every History of morning. percutaneous coronary intervention atorvastatin 80 mg Take 1 tablet 30 tablet 3 08/26/2019 Active tabletIndications: by mouth at History of bedtime. percutaneous coronary intervention LISINOPRIL 40 mg TAKE 1 TABLET 90 tablet 2 09/24/2019 Active tabletIndications: BY MOUTH EVERY Essential DAY IN THE hypertension MORNING TRIAMTERENE-HYDROCH TAKE 1 CAPSULE 90 capsule 1 10/19/2019 Active LOROTHIAZIDE BY MOUTH EVERY 37.5-25 mg per DAY IN THE capsule MORNING VASCEPA 1 gram TAKE 2 360 capsule 2 03/15/2020 Ac tive capsule CAPSULES BY MOUTH 2 (TWO) TIMES DAILY. ticagrelor 90 mg Take 1 tablet 180 tablet 3 06/01/2020 Active tabletIndications: by mouth 2 History of (two) times percutaneous daily. coronary intervention ticagrelor 90 mg Take 1 tablet 60 tablet 11 04/20/2020 06/01/20 2 Discontinued tabletIndications: by mouth 2 0 History of (two) times percutaneous daily. coronary intervention documented as of this encounter (statuses as of 06/01/2020) Active Problems Problem Noted Date Coronary artery disease involving [place] coronary maryanne ry of [place] heart 07/19/2019 without angina pectoris History of percutaneous coronary intervention 06/01/20 19 documented as of this encounter (statuses as of 06/01/2020) Immunizations Name Administration Dates Next Due Influenza [...] with No / Unsure 05/17/2020 9:46 AM HHAS someone who was confirmed or suspected to have Coronavirus / COVID-19? documented as of this encounter Last Filed Vital Signs Not on filedocumented in this encounter Miscellaneous Notes Telephone Encounter - Peg Cuba, RN - 06/01/2020 1:54 PM CSTSent 90 day script per patient request. elephone Encounter - Jong Veliz - 05/30/2020 3:10 PM CSTMartín Bermudez is a 65 year old male Patient is calling and stating that the prescription, ticagrelor, sent over to the pharmacy was for 30 days and his insurance is not covering it. Patient stated his insurance will only cover 90 days prescription. Patient is requesting if prescription for 90 days supplies can be sent over. Patient is requesting a call back in regards to this concern. [id number] - [address] [address] documented in this encounter Plan of Treatment Date Type Specialty Care Team Description 07/19/2020 Office Visit Cardiology Clint Soto M D [address] [place] [address] [phone] 08/11/2020 Office Visit Pulmonary Disease Bobby Trevino DO [address] [place] [phone] 05/16/2021 Office Visit Pulmonary Disease Giulia Ferrera MD [address] [place] [address] [phone] Health Maintenance Due Date Last Done Comments [...] of this encounter Implants Implanted Type Area Glass Novelty Maker Device Identifier Shelf Exp iration Model / [...] Phone Address Type / Group BCBS OF [facility] [id number] 2018-Bianca [phone] [address] PPO/POS [place] t 7 [id number] [place] [address] documented as of this encounter
--- OUTSIDE RECORDS SUMMARY | 2020-06-30 08:29 | XMS REPORT ---
:1955 Author Organization [facility] Address [address] [facility] [address] [place] [address] Care Team Providers Name Role Phone Keyshawn Gerard Unavailable [phone] PROBLEMS Type Condition ICD9-CM [id number] Onset Condition SNOMED Code Notes Code Code Dates Status Problem Carpal tunnel G56.02 Active 034714892581031 syndrome of left wrist Problem Carpal tunnel G56.01 Active 566924315050447 syndrome, right ALLERGIES No Known Allergies ENCOUNTERS from 1955 to 2020-06-13 Encounter Location Date Provider Diagnosis [facility] [address] Jun, Keyshawn Gerard [facility] [address], [place] [address] wrist G56.02 ; Pain in joint of rig ht hand M25.541 ; Pain, joint, rand nd, left M25.542 an d Carpal tunnel syndrome, right G56.01 IMMUNIZATIONS Vaccine Route Administration Date Status LIDOCAINE HCL 10MG/ML Unknown September 22, 2018 Administer ed Kenalog (Triamcinolone) Unknown September 22, 2018 Administ ered SOCIAL HISTORY Tobacco Use: Social History Observation Description Date Details (start date - stop date) Never Smoker Sex Assigned At : Social History Observation Description Sex Assigned At Unknown Alcohol Screen Question Answer Notes Did you have a drink containing alcohol in the past year? No Points 0 Interpretation Negative Tobacco Use/Smoking Question Answer Notes Are you a never smoker Additional Findings: Tobacco Non-User Current non-smoker REASON FOR REFERRAL No Information VITAL SIGNS Height 75 in Jun, Weight 250 lbs Jun, Temperature 97.1 degrees Fahrenheit Jun, BMI 31.24 kg/m2 Jun, Blood pressure systolic 114 mm Hg Jun, Blood pressure diastolic 74 mm Hg Jun, MEDICATIONS Medication SIG (Take, Route, Notes Start Date End Date Status Frequency, Duration) Latanoprost Active Tylenol PM Extra 1 tablet at bedtime as Aug, Active Strength 500-25 MG needed Orally Once a day for 30 day(s) PreserVision AREDS 2 - TAKE 1 CAPSULE BY Active MOUTH EVERY DAY Oral for 90 Aspirin 81 Active Vascepa Active Brilinta Active Align - as directed Orally Aug, Acti ve Centrum Silver - as directed Orally Aug, Active Tramadol HCl 50 MG 1 tablet as needed Mar, Active Orally Q6H PRN PAIN Atorvastatin Calcium Acti ve Amlodipine Besylate 10 TAKE 1 TABLET BY MOUTH Active MG EVERY DAY Oral for 90 Simvastatin 40 MG TAKE 1 TABLET BY MOUTH Not-Taking EVERYDAY AT BEDTIME Oral for 90 Sucralfate 1 GM TAKE 1 TABLET BY MOUTH Not-Taking THREE TIMES A DAY Oral for 30 Triamterene-HCTZ Active Lisinopril 20 MG TAKE 1 TABLET BY MOUTH Active EVERY DAY Oral for 90 Omeprazole 20 MG TAKE 1 CAPSULE BY N ot-Taking MOUTH EVERY DAY Oral for 90 PROCEDURES No Information RESULTS No Results REASON FOR VISIT F/U LEFT HAND PAIN MEDICAL (GENERAL) HISTORY Type Description Date Medical History HTN Medical History high cholesterol Medical History Taking aspirin Medical History Heart stent Surgical History left index finger Surgical History left wrist-metal Surgical History right RCR 02/10/19 Goals Section No Information Health Concerns No Information MEDICAL EQUIPMENT No Information MENTAL STATUS No Information FUNCTIONAL STATUS No Information ASSESSMENTS Encounter Date Diagnosis Assessment Notes Treatment Notes Treatm ent Clinical Notes Jun, Carpal tunnel -discussed both syndrome of left operative and wrist (ICD-10 - nonoperative G56.02) treatment -he has failed conservative treatment including NSAIDs and night splints -EMG/NCS demonstrates severe carpal tunnel syndrome -will proceed with left carpal tunnel release at the end of the month -f/u 1 week postop then will discuss right carpal tunnel release Jun, Pain in joint of right hand (ICD-10 - M25.541) Jun, Pain, joint, hand, left (ICD-10 - M25.542) Jun, Carpal tunnel -discussed both syndrome, right operative and (ICD-10 - G56.01) nonoperative treatment -he has failed conservative treatment including NSAIDs and night splints -EMG/NCS demonstrates severe carpal tunnel syndrome -will proceed with left carpal tunnel release at the end of the month -f/u 1 week postop then will discuss right carpal tunnel release PLAN OF TREATMENT Treatment Notes Assessment Notes Clinical Notes Carpal tunnel syndrome of left -discussed both operative and wrist nonoperative treatment-he has failed conservative treatment including NSAIDs and night splints-EMG/NCS demonstrates severe carpal tunnel syndrome-will proceed with left carpal tunnel release at the end of the month-f/u 1 week postop then will discuss right carpal tunnel release Carpal tunnel syndrome, right -discussed both operative and nonoperative treatment-he has failed conservative treatment including NSAIDs and night splints-EMG/NCS demonstrates severe carpal tunnel syndrome-will proceed with left carpal tunnel release at the end of the month-f/u 1 week postop then will discuss right carpal tunnel release Next Appt Details f/u 1 week postop Reason: Insurance Providers Payer Name Payer Payer Insured Name Patient Coverage Covera ge End Address Phone Relationship to Start Date Jelani e Insured [employer] [phone] Lloyd [place]ier and [place] [id number] [facility] [id number]
--- OUTSIDE RECORDS SUMMARY | 2020-06-30 08:29 | XMS REPORT ---
:[address] [facility] Address [address] [place] [address] Care Team Providers Name Role Phone Keyshawn Gerard Unavailable [phone] PROBLEMS Type Condition ICD9-CM [id number] Onset Condition SNOMED Code Notes Code Code Dates Status Problem Carpal tunnel G56.02 Active 462773897814440 syndrome of left wrist Problem Carpal tunnel G56.01 Active [id number] syndrome, right ALLERGIES No Known Allergies ENCOUNTERS from 1955 to 2020-06-08 Encounter Location Date Provider Diagnosis [facility] [address] Jun, [place] [address] IMMUNIZATIONS Vaccine Route Administration Date Status LIDOCAINE [...] REASON FOR REFERRAL No Information VITAL SIGNS No information MEDICATIONS Medication SIG (Take, Route, Notes Start [...] Information RESULTS No Results REASON FOR VISIT Surgery MEDICAL (GENERAL) HISTORY Type Description Date Medical History HTN Medical History high cholesterol Medical History Taking aspirin Medical History Heart stent Surgical History left index finger Surgical History left wrist-metal Surgical History right RCR 02/10/19 Goals Section No Information Health Concerns No Information MEDICAL EQUIPMENT No Information MENTAL STATUS No Information FUNCTIONAL STATUS No Information ASSESSMENTS No Information PLAN OF TREATMENT No Information Insurance Providers Payer Name Payer Payer Insured Name Patient Coverage Covera End Address Phone Relationship to Start Date Jelani e Insured Blue Cross [phone] StonejignaricardoLloyd self and Blue [id number] [facility] [id number]
[2020-06-30] MEDS ORDERED: MIDAZOLAM HCL 2 MG/2 ML INJ ONE (08:48)
[2020-06-30] MEDS ORDERED: KETOROLAC 30 MG/ML INJ ONE (08:49)
[2020-06-30] MEDS ORDERED: FENTANYL CITR 100 MCG/2 ML ONE (08:49)
[2020-06-30] MEDS ORDERED: LIDOCAINE 2% MPF 5 ML VIAL ONE (08:49)
[2020-06-30] MEDS ORDERED: propofoL 200 MG/20 ML VIAL IV ONE (08:49)
[2020-06-30] MEDS ORDERED: Ringers Lactate 1,000 ML IV ONE (09:04)
[2020-06-30] MEDS ORDERED: CEFAZOLIN/SWI 1gm 1 GM/10 ML SYR ONE (09:04)
[2020-06-30] MEDS: BUPIVACAINE 0.25% PF 10 ML VIAL ONE ×2 (10:31→10:45)
--- NOTE | 2020-06-30 11:12 | P.BOP ---
Preoperative diagnosis: left carpal tunnel syndrome Postoperative diagnosis: same Primary procedure: left open carpal tunnel release Procurement Intern: NONE,NONE Estimated blood loss: 2 cc Specimen: none Findings: per anesthesia record Anesthesia: General Complications: None Implants: none Fluids & blood products: per anesthesia record; TT: 19 mins @ 250 mmHg Transferred to: Recovery Room Condition: Good
[2020-06-30 11:20] VITALS: TEMP 97.1; O2SAT 99
[2020-06-30 11:46] VITALS: BP 150/86
[2020-06-30] MEDS ORDERED: CODEINE 30MG/APAP 300MG TAB ONE (12:16)
--- NOTE | 2020-07-01 01:53 | OP ---
Surgeon: Keyshawn Gerard MD Preoperative Diagnosis: Left carpal tunnel syndrome. Postoperative Diagnosis: Left carpal tunnel syndrome. Procedure Performed: Left open carpal tunnel release. Anesthesia: General LMA. Fluids: Per Anesthesia record. Estimated Blood Loss: 2 cc. Complications: None. Indication For Procedure: Martín is a 65-year-old male who presented to my clinic with signs, sympt oms, and EMG findings consistent with a significant carpal tunnel syndrome. Patient failed conservat ze treatment measures, had significant difficulties with activities of daily living. After discussi on with the patient at length risks and benefits associated with operative and nonoperative treatment , he expressed understanding and elected to proceed with operative treatment. Description Of Procedure: After informed consent was obtained, the patient was identified in the pre operative holding area. The left upper extremity was marked. The patient was then taken to the OR, transferred to the operative table in the supine fashion and placed under general LMA anesthesia. Th e left upper extremity was then prepped and draped in usual sterile fashion. A time-out was initiate d. The correct patient and procedure were confirmed and identified. The patient did receive his pre operative prophylactic antibiotics and the left upper extremity was then exsanguinated and tourniquet was inflated to 250 mmHg. Approximately, a 3 cm longitudinal incision was made just ulnar to the th enar crease. Dissection was then taken down to the palmar fascia. A Rothschild elevator was then placed deep to the palmar fascia and transverse carpal ligament and with a 15 blade, transverse carpal ligam ent was released to decompress median nerve with a Rothschild elevator protecting the median nerve at all times just deep to the ligament. Using a blunt-tipped Metzenbaum, any remaining fascial bands were t hen released again with the tips aimed to superficially. The wound was then irrigated thoroughly wit h normal saline and skin was approximated using a 5-0 Prolene. Sterile dressings were applied. Tour niquet was let down. The patient was awakened and transferred to PACU in stable condition. Postoperative Plan: He will follow up in 1 week for wound check and suture removal. He may begin wo rking on range of motion exercises. CV/MODL Voice ID: [id number] Report ID: [id number]
== END 2020-06-30 12:50 | disposition home or self-care (01) ==
LOC: OR 08:24
PROVIDERS: ATTEND Orthopaedic Surgery Sports Medicine
PROC: 01N50ZZ Release Median Nerve, Open Approach (ICD-10-PCS; principal; 2020-06-30 10:00)
DX: G56.02 Carpal tunnel syndrome, left upper limb (principal); Z20.822 Contact with and (suspected) exposure to COVID-19
CPT/HCPCS: 93005; 85025; 80048; 36415; 85610; 85730; 71046; 64721; U0002; J2704; J2250; J3010; J0690; J7120

== ENCOUNTER 2020-08-23 08:12 | Day surgery (SDC) | payer BC ==
[2020-08-17 10:01] LABS: Absolute Lymphocytes (CBC) 0.9 K/uL (0.7-4.9); Basophils % 0.8 % (0-1.3); Hematocrit 39.5 % (39.6-49.0); Lymphocytes % 13.5 % (15.3-44.8); MPV 7.8 fL (7.6-11.3); RBC Red Blood Cell Count 4.33 M/uL (4.33-5.43)
[2020-08-17 10:14] LABS: Protime INR 1.03
[2020-08-17 13:17] LABS: Potassium 4.2 mmol/L (3.5-5.1)
[2020-08-23] MEDS ORDERED: CEFAZOLIN/SWI 1gm 1 GM/10 ML SYR ONE (09:10)
[2020-08-23] MEDS ORDERED: Ringers Lactate 1,000 ML IV ONE (09:10)
[2020-08-23] MEDS ORDERED: FENTANYL CITR 100 MCG/2 ML ONE (09:40)
[2020-08-23] MEDS ORDERED: NS 0.9% VIAL 20 ML ONE (09:41)
[2020-08-23] MEDS ORDERED: propofoL 200 MG/20 ML VIAL IV ONE ×2 (09:41→11:57)
[2020-08-23] MEDS ORDERED: MIDAZOLAM HCL 2 MG/2 ML INJ ONE (09:41)
[2020-08-23] MEDS ORDERED: LIDOCAINE 1% MPF 30 ML VIAL ONE (09:42)
[2020-08-23] MEDS: BUPIVACAINE 0.25% PF 10 ML VIAL ONE ×2 (11:51→12:04)
[2020-08-23] MEDS ORDERED: KETOROLAC 30 MG/ML INJ ONE (12:15)
--- NOTE | 2020-08-23 12:17 | P.BOP ---
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
[2020-08-23 13:23] VITALS: BP 118/92; TEMP 97.4; O2SAT 100
--- NOTE | 2020-08-24 12:10 | OP ---
Date of Procedure: 08/23/2020 Surgeon: Keyshawn Gerard MD Preoperative Diagnosis: Right carpal tunnel syndrome. Postoperative Diagnosis: Right carpal tunnel syndrome. Procedure Performed: Right open carpal tunnel release. Anesthesia: Beason block. Complications: None. Implants: None. Indication For Procedure: Martín is a 65-year-old male who presented to my clinic with signs, sympt oms, and EMG findings consistent with carpal tunnel syndrome. The patient failed conservative treatm ent measures. Had continued symptoms that interfered with his activities of daily living. I discusse d with the patient at length risks and benefits associated with operative and nonoperative treatment. He expressed understanding and elected to proceed with operative treatment. Description Of Procedure: After informed consent was obtained, the patient was identified in the pre operative holding area. The right upper extremity was marked. The patient was then brought back to the operating room, transferred to the operating table in supine fashion, placed under Beason block ane sthesia. The right upper extremity was then prepped and draped in usual sterile fashion. A time-out was initiated. The correct patient and procedure were confirmed and identified. The patient did re ceive his preoperative prophylactic antibiotics. Approximately, a 2.5 cm longitudinal incision was m conner just ulnar to the thenar crease. Dissection was then taken down to the palmar fascia, which was identified. A Brewster elevator was placed just deep to the palmar fascia and transverse carpal ligamen t protecting the median nerve at all times. A 15 blade was then used to release the transverse carpa l ligament under direct visualization. Blunt-tip Metzenbaums were then used to release any remaining fascial bands again with keeping the Brewster elevator protecting the median nerve at all times. The w ound was then irrigated thoroughly with normal saline and the skin was approximated with a 5-0 Prolen e. Sterile dressings were applied. Tourniquet was let down. The patient was awakened and transferr ed to PACU in stable condition. Postoperative Plan: The patient will be nonweightbearing on his right upper extremity. He will foll ow up in clinic in 1 week for suture removal. Fluids: Per Anesthesia record. Ebl: 2 cc. CV/MODL Voice ID: [id number] Report ID: [id number]
== END 2020-08-23 13:10 | disposition home health service (06) ==
LOC: OR 08:12
PROVIDERS: ATTEND Orthopaedic Surgery Sports Medicine
PROC: 01N50ZZ Release Median Nerve, Open Approach (ICD-10-PCS; principal; 2020-08-23 10:30)
DX: G56.02 Carpal tunnel syndrome, left upper limb (principal); G56.01 Carpal tunnel syndrome, right upper limb; I10 Essential (primary) hypertension; E78.00 Pure hypercholesterolemia, unspecified; Z20.822 Contact with and (suspected) exposure to COVID-19
CPT/HCPCS: 85025; 80048; 36415; 85610; 85730; 64721; U0002; J2704 ×2; J2250; J3010; J0690; J7120